=== PATIENT | female | born 1985 | race Caucasian/White ===

== ENCOUNTER 2020-02-25 00:22 | Inpatient (IN) | payer OTHER, SELFPAY ==
[2020-02-25] VITALS (19 sets, daily range): BP systolic 145–184; BP diastolic 94–129; PULSE 65–105; RESP 10–22; TEMP 36.3–36.8; O2SAT 93–100; BMI 45.0
--- NOTE | ~2020-02-25 | XR_ITS ---
EXAMINATION: XR abdomen/kub 1V INDICATION: Right ureteral stone TECHNIQUE: Supine view of the abdomen is obtained. COMPARISON: 0335 hours FINDINGS: A right internal ureteral stent has been placed in expected position. The bowel gas pattern is normal. Multiple pelvic phleboliths are noted. An IUD is seen in the pelvis. Surgical changes are noted at the site of left nephrectomy IMPRESSION: 1. Right internal ureteral stent in expected position. Reviewed, dictated and finalized at location A. VICE MARSHAL
--- NOTE | ~2020-02-25 | XR_ITS ---
EXAMINATION: XR abdomen/kub 1V INDICATION: Right flank pain TECHNIQUE: Supine views of the abdomen were obtained on 2 radiographs. COMPARISON: CT from today FINDINGS: A subtle calcification projects over the right L4 transverse process and likely corresponds to the known right ureteral stone. The bowel gas pattern is normal. Surgical clips are noted in the left renal fossa. An IUD is present in the uterus. There are phleboliths of the pelvis. Mild hip oste oarthritis is noted. IMPRESSION: 1. Subtle calcification projecting in the right proximal ureter at the expected position of the known right ureteral stone. Reviewed, dictated and finalized at location A. EL AIDE
--- NOTE | ~2020-02-25 | XR_ITS ---
EXAMINATION: XR retrograde pyelo w/stent RT INDICATION: Right ureteral stone TECHNIQUE: Eight intraoperative fluoroscopic images are submitted for review. Total fluoroscopic time is 21.2 seconds. COMPARISON: KUB from today FINDINGS: Fluoroscopic images demonstrate retrograde opacification of a mildly dilated right renal co llecting system and proximal ureter. A right internal ureteral stent is placed in expected position. An IUD is noted. IMPRESSION: 1. Right internal ureteral stent in expected position. 2. Mild right hydroureteronephrosis. Please refer to procedure note for full details. Reviewed, dictated and finalized at location A. OM WORKER IMPRESSION: 1. Right internal ureteral stent in expected position. 2. Mild right hydroureteronephrosis. Please refer to procedure note for full de tails.
--- NOTE | ~2020-02-25 | CT_ITS ---
EXAMINATION: CT abdomen pelvis wo con DATE: 02/25/2020 03:33 INDICATION: Right flank pain, history of left nephrectomy TECHNIQUE: Computed tomography (CT) of the abdomen and pelvis was performed without intravenous contr ast. The dose-length product (DLP) was 1497.72 mGy-cm. Automated exposure control and iterative recon struction technique were employed. COMPARISON: None FINDINGS: Minimal dependent atelectasis is present in the lung bases. The heart size is normal. There is a 5 mm nodule of the right lower lobe. The liver, spleen, pancreas, and right adrenal gland are n ormal. Multiple stones are present in the nondistended gallbladder. The left kidney is surgically abs ent. There is a 6 mm stone in the right proximal ureter which causes moderate right hydroureteronephr osis. No pathologically enlarged abdominal or pelvic lymph nodes are identified. There is no free int raperitoneal gas or evidence of bowel obstruction. An IUD is present in the uterus in expected positi on. There is a small fat-containing umbilical hernia. Soft tissue density in the midline lower abdome n could reflect scarring from prior surgery. IMPRESSION: 1. 6 mm stone of the proximal right ureter causing moderate right hydroureteronephrosis. 2. Cholelithiasis without evidence of cholecystitis. 3. 5 mm nodule of the right lower lobe, likely benign. Correlation with prior imaging. Reviewed, dictated and finalized at location A. D EDUCATION COORDINATOR IMPRESSION: 1. 6 mm stone of the proximal right ureter causing moderate right hydroureteron ephrosis. 2. Cholelithiasis without evidence of cholecystitis. 3. 5 mm nodule of the right lower lobe, likely benign. Correlation with prior i maging.
--- NOTE | ~2020-02-25 | US_ITS ---
EXAMINATION: US retroperitoneal duplex ltd EXAM DATE: 02/27/2020 16:37 INDICATION: Right Renal Duplex Doppler U/S r/o renovascular disease. Left nephrectomy. TECHNIQUE: Multiple grayscale and Doppler images of the kidney and renal arteries were obtained. Th ere is no prior study for comparison. FINDINGS: The aorta peak systolic velocity is 39 cm/s. The right renal artery peak systolic velocity is 109 cm/ s in the proximal segment, 154 cm/s in the mid segment, and 183 cm/s in the distal segment. Correlation made with CT scan from 2 days ago, and there was no arterial sclerosis demonstrated on at exam. IMPRESSION: No renal artery stenosis suspected. Reviewed, dictated and finalized at location A. N ELEVATOR MOTOR STARTER
[2020-02-25 01:28] LABS: Basophils Absolute Auto 0.1 K/mm3 (0.0-0.1); Basophils Percent Auto 0.4 % (0.2-1.2); Eosinophils Absolute Auto 0.1 K/mm3 (0-0.3); Eosinophils Percent Auto 0.8 % (0-4.4); Hematocrit 39.4 % (37.0-47.0); Immature Granulocyte Absolute 0.11 K/mm3 (0.00-0.031); Immature Granulocyte Percent A 0.6 % (0-0.5); Lymphocytes Absolute Auto 1.93 K/mm3 (0.9-3.2); Lymphocytes Percent Auto 11.2 % (18.3-44.2); Mean Corpuscular Hemoglobin 27.7 pg (26-34); Mean Corpuscular Volume 83.8 fl (80-100); Monocytes Absolute Auto 0.9 K/mm3 (0.1-0.6); Monocytes Percent Auto 5.5 % (2.6-8.5); Neutrophils Absolute Auto 14.1 K/mm3 (1.3-6.7); Neutrophils Percent Auto 81.5 % (45.5-73.1); Platelet Count Result 292 k/mm3 (150-375); Red Cell Distribution Width 14.8 % (11.5-14.5); White Blood Count 17.2 K/mm3 (4.5-10.0)
[2020-02-25 01:42] LABS: Alanine Aminotransferase 26 U/L (4-35); Albumin Level 4.2 g/dL (3.5-5.1); Alkaline Phosphatase 107 U/L (38-126); Anion Gap 8 mmol/L (8-16); Aspartate Amino Transferase 34 U/L (14-36); Bilirubin,Total 0.5 mg/dL (0.2-1.3); Blood Urea Nitrogen 14 mg/dL (7-17); Calcium 9.6 mg/dL (8.4-10.2); Carbon Dioxide 28 mmol/L (22-30); Chloride 103 mmol/L (98-107); Estimated CRCL calculation 62 ml/min; Estimated Glomerular Filt Rate 43; Glucose 127 mg/dL (65-105); Potassium 3.9 mmol/L (3.4-5.0); Sodium 139 mmol/L (137-145)
--- NOTE | 2020-02-25 01:53 | ED.BACK ---
HPI - Back Pain/Injury General Chief Complaint: Back Pain/Injury Stated Complaint: kidney stones Time Seen by Provider: 02/25/20 01:46 Source: patient Mode of arrival: ambulatory Limitations: no limitations History of Present Illness HPI Narrative: This patient is a 34 year old female with history of kidney stone and a left nephrectomy who presents for evaluation of right flank pain. She states she developed right flank pain 2 weeks ago briefly and then it spontaneously resolved. Her pain developed again at 8 pm tonight. This pain has been severe and she has associated nausea and vomiting. Her pain radiates to her right lower abdomen. She also reports she is unable to urinate since she had this pain tonight. She denies fever or chills. She took tylenol 1000 mg at 9 pm, and her pain level is 5/10. Related Data Home Medications Medication Instructions Recorded Confirmed No Home Medications 02/25/20 02/25/20 Allergies Allergy/AdvReac Type Severity Reaction Status Date / Time No Known Allergies Allergy Mild Verified 02/25/20 12:10 Review of Systems Review of Systems: All systems reviewed & are unremarkable except as noted in HPI and below Constitutional: Constitutional: Denies chills and Denies fever(s) Respiratory: Respiratory: Denies cough and Denies dyspnea Gastrointestinal: Gastrointestinal: Reports abdominal pain, Reports nausea and Reports vomiting Genitourinary: Genitourinary: Denies nocturia, Denies dysuria, Reports flank pain and Denies vaginal discharge Musculoskeletal: Musculoskeletal: Reports back pain [facility] Past Medical History Medical History Kidney stone Surgical History Surgical History H/O left nephrectomy Family History Family History Father Nephrolithiasis Social History Social History Smoking status: Never smoker Alcohol intake: current Drinks per week: 1 Substance use: never Substance use type: does not use Living arrangements: with family Spiritual care concerns: No Exam Const: General: alert and ill appearing; No no acute distress Orientation/consciousness: patient oriented x3 HENMT: Head: atraumatic Face and sinus: face symmetric Throat: posterior oropharynx normal Eyes: EOM: EOMs intact bilaterally Chest: Chest palpation & inspection: normal inspection of the chest Resp: Effort & Inspection: normal respiratory effort and no retractions Auscultation: clear to auscultation bilaterally Cardio: Rate: regular rate Rhythm: regular rhythm Heart sounds: Murmur heart sound present GI: GI Palp: Yes Soft to palpation, Yes Tenderness to palpation present (GI) (RUQ), No Guarding due to palpation present (GI) and No Rigid due to palpation Auscultation: normal bowel sounds Skin: General skin exam: normal color Rashes: no rashes Psych: Mental Status: mental status grossly normal Affect: normal affect Course Consultations Consultation #1: I discussed case with Dr. Taylor of urology. He states patient will need to be admitted and have stent placement. He states he is not cashier and salesperson and to call DR. Romero Date: 02/25/20 Time: 04:12 Consultation #2: i have discussed case with DR. Romero and he agrees to admit patient to their service Date: 02/25/20 Time: 06:30 Vital Signs Vital signs: Vital Signs Pulse Rate 70 02/25/20 00:37 Respiratory Rate 20 02/25/20 00:37 Blood Pressure 176/116 H 02/25/20 00:37 Pulse Oximetry 98 02/25/20 00:37 Temperature 98.0 F 02/25/20 17:54 Pulse Rate 87 02/25/20 17:54 Respiratory Rate 18 02/25/20 17:54 Blood Pressure 178/99 H 02/25/20 17:54 Pulse Oximetry 100 02/25/20 17:54 MDM - Back Pain/Injury Lab Data Attestation: I reviewed the patient's lab re
[2020-02-25] MEDS: ONDANSETRON INJ 4 MG/2 ML VIAL IV PUSH ×2 (02:48→07:43)
[2020-02-25] MEDS: HYDROmorphone HCL INJ (*CRX) 1 MG/ML SYR IV PUSH (02:48)
[2020-02-25] MEDS: LACTATED RINGERS 1,000 ML 999 ML IV CONT (02:51)
[2020-02-25 03:34] LABS: Add Urine Microscopic? YES; Appearance Urine Cloudy (Clear); Bacteria Urine Trace /hpf; Bilirubin Urine Negative (Negative); Blood Urine 3+ (Negative); Color Urine Yellow (Yellow); Glucose Urine UA Negative (Negative); Ketones Urine Negative (Negative); Leukocyte Esterase Ur Negative LEU/UL (Negative); Mucus Urine Rare /lpf; Nitrate Urine Negative (Negative); Protein Urine 1+ mg/dL (Negative); RBC Urine >75 /hpf (0-2); Specific Grav Ur 1.013 (1.001-1.035); Squamous Epithelial Cell Urine Many /hpf (Few); Urobilinogen Urine Negative mg/dL (<2.0); WBC Urine 0-3 /hpf
[2020-02-25] MEDS: SODIUM CHLORIDE 0.9% IV 1,000 ML 125 ML IV CONT ×3 (07:24→21:11)
--- NOTE | 2020-02-25 08:25 | PM.IMHP ---
H&P: HPI History of Present Illness Date/Time: 02/25/20 08:25 Chief complaint: Obstructive uropathy/right proximal ureteral stone Narrative: Clair Cardenas is a 34 year old female with a solitary right kidney who presented to the [facility] yesterday evening with several hours of excruciating right flank pain and nausea/vomiting. She reports that several years ago she underwent a simple nephrectomy with Dr. 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 She denies fevers, chills. Her pain started around 8pm and she started vomiting around 10 pm. The pain is described as sharp and severe although relieved with IV narcotics. Review of Systems Constitutional: Constitutional: Denies fatigue, Denies fever(s), Denies night sweats and Reports poor appetite Eyes: Eyes: Reports no additional eye complaints ENT: Reports system reviewed and no additional complaints, except as documented Cardiovascular: Cardiovascular: Reports no additional cardiovascular complaints Respiratory: Respiratory: Reports no additional respiratory complaints Gastrointestinal: Gastrointestinal: Reports abdominal pain, Denies hematochezia and Denies constipation Genitourinary: Genitourinary: Denies hematuria, Denies post void dribbling and Denies nocturia Musculoskeletal: Musculoskeletal: Reports no additional musculoskeletal complaints Integumentary/Breasts: Skin/Breast: Reports system reviewed and no additional complaints, except as docu Neurologic: Reports system reviewed and no additional complaints, except as documented Psychiatric: Psychiatric: Reports no additional psychiatric complaints Endocrine: Endocrine: Reports no additional endocrine complaints Hematologic/Lymphatic: Hematologic/Lymphatic: Reports no additional hematologic/lymphatic complaints Allergic/Immunologic: Allergic/Immunologic: Reports no additional allergic/immunologic complaints [facility] Past Medical History Medical History Kidney stone Surgical History Surgical History H/O left nephrectomy Family History Family History (Updated 02/25/20 @ 08:29 by Leland Romero MD) Father Nephrolithiasis Social History Social History Smoking status: Never smoker Meds Home Medications and Allergies Home Medications Medication Instructions Recorded Confirmed Type azithromycin See Rx Instructions .ROUTE 04/12/19 Rx .COMPLEX #6 tablet Allergies Allergy/AdvReac Type Severity Reaction Status Date / Time No Known Allergies Allergy Mild Verified 02/25/20 08:06 Vital Signs Vital Signs - 24 hr 02/25/20 00:37 02/25/20 00:40 02/25/20 07:52 Temperature 98.3 F Pulse Rate 70 83 83 Respiratory Rate 20 18 18 Blood Pressure 176/116 H 180/125 H 163/116 H Pulse Oximetry 98 99 95 Exam Const: General: cooperative, healthy appearing, well developed, alert, awake and in distress mild Nutritional Appearance: obese Orientation/consciousness: oriented to person, oriented to place and oriented to time HENMT: Head: normal to inspection Ears: hearing grossly normal bilaterally General nose exam: Normal external nose present Eyes: General: appearance normal, both eyes and all related structures Resp: Effort & Inspection: normal respiratory effort, able to speak in complete sentences, normal respiratory pattern, no audible wheezes, no cough and respiratory effort not decreased Cardio: Jugular venous distension: no JVD Rate: regular rate Rhythm: regular rhythm GI: Inspection: normal to inspection and [place] present Skin: General skin exam: normal color and no rashes or lesions noted Neuro: General: oriented to person, oriented to place, oriented to time, Normal light touch and pain sensation and no focal motor deficits H&P: Results Labs Labs: Short CBC
--- NOTE | 2020-02-25 09:13 | WPDANESEPP ---
Anes - Eval Pre Procedure Procedure: Operation Date: 02/25/20 09:15 Proposed Procedures p Cysto, RPG, Stone Ext, Stent Placement(Right) - Leland Romero MD Date/Time: 02/25/20 09:13 Surgeon: Jessie Romero MD Pre Op Diagnosis: Obstructive uropathy/right proximal ureteral stone Patient Data Age: 34 Gender: F Height: 1.63 m Weight: 113.4 kg Last Vital Signs Temp 36.8 C 02/25/20 00:40 Pulse 83 02/25/20 07:52 Resp 18 02/25/20 07:52 BP 163/116 H 02/25/20 07:52 Pulse Ox 95 02/25/20 07:52 Allergies Allergy/AdvReac Type Severity Reaction Status Date / Time No Known Allergies Allergy Mild Verified 02/25/20 08:06 Home Medications Medication Instructions Recorded Confirmed Type azithromycin See Rx Instructions .ROUTE 04/12/19 Rx .COMPLEX #6 tablet Laboratory Tests 02/25/20 02/25/20 02/25/20 01:21 01:21 03:23 WBC 17.2 K/mm3 H K/mm3 (4.5-10.0) RBC 4.70 M/mm3 M/mm3 (4.2-5.4) Hgb 13.0 g/dL g/dL (12.0-15.0) Hct 39.4 % % (37.0-47.0) MCV 83.8 fl fl (80-100) MCH 27.7 pg pg (26-34) MCHC 33.0 g/dl g/dl (32-36) RDW 14.8 % H % (11.5-14.5) Plt Count 292 k/mm3 k/mm3 (150-375) MPV 11.0 fl H fl (7.4-10.4) Immature Gran % (Auto) 0.6 % H % (0-0.5) Neut % (Auto) 81.5 % H % (45.5-73.1) Lymph % (Auto) 11.2 % L % (18.3-44.2) [place] % (Auto) 5.5 % % (2.6-8.5) Eos % (Auto) 0.8 % % (0-4.4) Baso % (Auto) 0.4 % % (0.2-1.2) Lymph # (Auto) 1.93 K/mm3 K/mm3 (0.9-3.2) [place] # (Auto) 0.9 K/mm3 H K/mm3 (0.1-0.6) Eos # (Auto) 0.1 K/mm3 K/mm3 (0-0.3) Baso # (Auto) 0.1 K/mm3 K/mm3 (0.0-0.1) Abs Immat Gran (auto) 0.11 K/mm3 H K/mm3 (0.00-0.031) Absolute Neuts (auto) 14.1 K/mm3 H K/mm3 (1.3-6.7) Absolute Nucleated RBC 0.0 K/mm3 K/mm3 (0.0-0.012) Nucleated RBC % 0.0 % % (0.0-0.2) Sodium 139 mmol/L mmol/L (137-145) Potassium 3.9 mmol/L mmol/L (3.4-5.0) Chloride 103 mmol/L mmol/L (98-107) Carbon Dioxide 28 mmol/L mmol/L (22-30) Anion Gap 8 mmol/L mmol/L (8-16) BUN 14 mg/dL mg/dL (7-17) Creatinine 1.40 mg/dL H mg/dL (0.7-1.0) Estim Creat Clear Calc 62 ml/min ml/min Estimated GFR 43 L (59 - ) Glucose 127 mg/dL H mg/dL (65-105) Calcium 9.6 mg/dL mg/dL (8.4-10.2) Total Bilirubin 0.5 mg/dL mg/dL (0.2-1.3) AST 34 U/L U/L (14-36) ALT 26 U/L U/L (4-35) Alkaline Phosphatase 107 U/L U/L (38-126) Total Protein 8.0 g/dL g/dL (6.3-8.2) Albumin 4.2 g/dL g/dL (3.5-5.1) Urine Color Yellow (Yellow) Urine Appearance Cloudy H (Clear) Urine pH 6.0 (5.0-9.0) Ur Specific [place] 1.013 (1.001-1.035) Urine Protein 1+ mg/dL H mg/dL (Negative) Urine Glucose (UA) Negative mg/dL mg/dL (Negative) Urine Ketones Negative mg/dL mg/dL (Negative) Ur Blood (Man) 3+ H (Negative) Urine Nitrate Negative (Negative) Urine Bilirubin Negative (Negative) Urine Urobilinogen Negative mg/dL mg/dL (<2.0) Leukocyte Esterase Rfl Negative KIT/UL KIT/UL (Negative) Urine RBC >75 /hpf H /hpf (0-2) Urine WBC 0-3 /hpf /hpf Ur Squamous Epith Cells Many /hpf H /hpf (Few) Urine Bacteria Trace /hpf /hpf Urine Mucus Rare /lpf /lpf SARS-CoV-2 RNA (RT-PCR) 02/25/20 06:58 WBC RBC Hgb Hct MCV MCH MCHC RDW Plt Count MPV Immature Gran % (Auto) Neut % (Auto) Lymph % (Auto) [place] % (Auto) Eos % (
--- NOTE | 2020-02-25 09:16 | WPDANESEPP ---
Anes - Eval Pre Procedure Procedure: Operation Date: 02/25/20 09:15 Proposed Procedures p Cysto, RPG, Stone Ext, Stent Placement(Right) - Leland Romero MD Date/Time: 02/25/20 09:16 Pre Op Diagnosis: Obstructive uropathy/right proximal ureteral stone Patient Data Age: 34 Gender: F Height: 1.63 m Weight: 113.4 kg Last Vital Signs Temp 36.8 C 02/25/20 00:40 Pulse 83 02/25/20 07:52 Resp 18 02/25/20 07:52 BP 163/116 H 02/25/20 07:52 Pulse Ox 95 02/25/20 07:52 Allergies Allergy/AdvReac Type Severity Reaction Status Date / Time No Known Allergies Allergy Mild Verified 02/25/20 12:10 Home Medications Medication Instructions Recorded Confirmed Type No Home Medications 02/25/20 02/25/20 History cephalexin [Keflex] 500 mg PO Q8H 3 Days #9 cap 02/26/20 Rx hydrocodone-acetaminophen 1 tab PO Q8H PRN #12 tablet 02/26/20 Rx oxybutynin chloride 5 mg PO TID PRN #60 tablet MDD 3 02/26/20 Rx tablets Laboratory Tests 02/25/20 02/25/20 02/25/20 01:21 01:21 03:23 WBC 17.2 K/mm3 H K/mm3 (4.5-10.0) RBC 4.70 M/mm3 M/mm3 (4.2-5.4) Hgb 13.0 g/dL g/dL (12.0-15.0) Hct 39.4 % % (37.0-47.0) MCV 83.8 fl fl (80-100) MCH 27.7 pg pg (26-34) MCHC 33.0 g/dl g/dl (32-36) RDW 14.8 % H % (11.5-14.5) Plt Count 292 k/mm3 k/mm3 (150-375) MPV 11.0 fl H fl (7.4-10.4) Immature Gran % (Auto) 0.6 % H % (0-0.5) Neut % (Auto) 81.5 % H % (45.5-73.1) Lymph % (Auto) 11.2 % L % (18.3-44.2) [place] % (Auto) 5.5 % % (2.6-8.5) Eos % (Auto) 0.8 % % (0-4.4) Baso % (Auto) 0.4 % % (0.2-1.2) Lymph # (Auto) 1.93 K/mm3 K/mm3 (0.9-3.2) [place] # (Auto) 0.9 K/mm3 H K/mm3 (0.1-0.6) Eos # (Auto) 0.1 K/mm3 K/mm3 (0-0.3) Baso # (Auto) 0.1 K/mm3 K/mm3 (0.0-0.1) Abs Immat Gran (auto) 0.11 K/mm3 H K/mm3 (0.00-0.031) Absolute Neuts (auto) 14.1 K/mm3 H K/mm3 (1.3-6.7) Absolute Nucleated RBC 0.0 K/mm3 K/mm3 (0.0-0.012) Nucleated RBC % 0.0 % % (0.0-0.2) Sodium 139 mmol/L mmol/L (137-145) Potassium 3.9 mmol/L mmol/L (3.4-5.0) Chloride 103 mmol/L mmol/L (98-107) Carbon Dioxide 28 mmol/L mmol/L (22-30) Anion Gap 8 mmol/L mmol/L (8-16) BUN 14 mg/dL mg/dL (7-17) Creatinine 1.40 mg/dL H mg/dL (0.7-1.0) Estim Creat Clear Calc 62 ml/min ml/min Estimated GFR 43 L (59 - ) Glucose 127 mg/dL H mg/dL (65-105) Calcium 9.6 mg/dL mg/dL (8.4-10.2) Total Bilirubin 0.5 mg/dL mg/dL (0.2-1.3) AST 34 U/L U/L (14-36) ALT 26 U/L U/L (4-35) Alkaline Phosphatase 107 U/L U/L (38-126) Total Protein 8.0 g/dL g/dL (6.3-8.2) Albumin 4.2 g/dL g/dL (3.5-5.1) Urine Color Yellow (Yellow) Urine Appearance Cloudy H (Clear) Urine pH 6.0 (5.0-9.0) Ur Specific [place] 1.013 (1.001-1.035) Urine Protein 1+ mg/dL H mg/dL (Negative) Urine Glucose (UA) Negative mg/dL mg/dL (Negative) Urine Ketones Negative mg/dL mg/dL (Negative) Ur Blood (Man) 3+ H (Negative) Urine Nitrate Negative (Negative) Urine Bilirubin Negative (Negative) Urine Urobilinogen Negative mg/dL mg/dL (<2.0) Leukocyte Esterase Rfl Negative KIT/UL KIT/UL (Negative) Urine RBC >75 /hpf H /hpf (0-2) Urine WBC 0-3 /hpf /hpf Ur Squamous Epith Cells Many /hpf H /hpf (Few) Urine Bacteria Trace /hpf /hpf Urine Mucus Rare /lpf /lpf SARS-CoV-2 RNA (RT-PCR) 02/25/20 06:58 WBC RBC Hgb Hct MCV MCH
[2020-02-25] MEDS: LACTATED RINGERS 1,000 ML 30 ML IV CONT (09:45)
--- NOTE | 2020-02-25 09:47 | WPDANESEPPF ---
Anes - Initial Pre Proc Eval Procedure: Operation Date: 02/25/20 09:15 Proposed Procedures p Cysto, RPG, Stone Ext, Stent Placement(Right) - Leland Romero MD Date/Time: 02/25/20 09:47 Surgeon: Leland Romero MD Pre Op Diagnosis: Obstructive uropathy/right proximal ureteral stone Patient Data Age: 34 Gender: F Height: 5 ft 4 in Weight: 113.4 kg Last Vital Signs Temp 36.8 C 02/25/20 00:40 Pulse 81 02/25/20 09:16 Resp 22 H 02/25/20 09:16 BP 172/129 H 02/25/20 09:16 Pulse Ox 100 02/25/20 09:16 Allergies Allergy/AdvReac Type Severity Reaction Status Date / Time No Known Allergies Allergy Mild Verified 02/25/20 08:06 Home Medications Medication Instructions Recorded Confirmed Type azithromycin See Rx Instructions .ROUTE 04/12/19 Rx .COMPLEX #6 tablet Laboratory Tests 02/25/20 02/25/20 02/25/20 01:21 01:21 03:23 WBC 17.2 K/mm3 H K/mm3 (4.5-10.0) RBC 4.70 M/mm3 M/mm3 (4.2-5.4) Hgb 13.0 g/dL g/dL (12.0-15.0) Hct 39.4 % % (37.0-47.0) MCV 83.8 fl fl (80-100) MCH 27.7 pg pg (26-34) MCHC 33.0 g/dl g/dl (32-36) RDW 14.8 % H % (11.5-14.5) Plt Count 292 k/mm3 k/mm3 (150-375) MPV 11.0 fl H fl (7.4-10.4) Immature Gran % (Auto) 0.6 % H % (0-0.5) Neut % (Auto) 81.5 % H % (45.5-73.1) Lymph % (Auto) 11.2 % L % (18.3-44.2) [place] % (Auto) 5.5 % % (2.6-8.5) Eos % (Auto) 0.8 % % (0-4.4) Baso % (Auto) 0.4 % % (0.2-1.2) Lymph # (Auto) 1.93 K/mm3 K/mm3 (0.9-3.2) [place] # (Auto) 0.9 K/mm3 H K/mm3 (0.1-0.6) Eos # (Auto) 0.1 K/mm3 K/mm3 (0-0.3) Baso # (Auto) 0.1 K/mm3 K/mm3 (0.0-0.1) Abs Immat Gran (auto) 0.11 K/mm3 H K/mm3 (0.00-0.031) Absolute Neuts (auto) 14.1 K/mm3 H K/mm3 (1.3-6.7) Absolute Nucleated RBC 0.0 K/mm3 K/mm3 (0.0-0.012) Nucleated RBC % 0.0 % % (0.0-0.2) Sodium 139 mmol/L mmol/L (137-145) Potassium 3.9 mmol/L mmol/L (3.4-5.0) Chloride 103 mmol/L mmol/L (98-107) Carbon Dioxide 28 mmol/L mmol/L (22-30) Anion Gap 8 mmol/L mmol/L (8-16) BUN 14 mg/dL mg/dL (7-17) Creatinine 1.40 mg/dL H mg/dL (0.7-1.0) Estim Creat Clear Calc 62 ml/min ml/min Estimated GFR 43 L (59 - ) Glucose 127 mg/dL H mg/dL (65-105) Calcium 9.6 mg/dL mg/dL (8.4-10.2) Total Bilirubin 0.5 mg/dL mg/dL (0.2-1.3) AST 34 U/L U/L (14-36) ALT 26 U/L U/L (4-35) Alkaline Phosphatase 107 U/L U/L (38-126) Total Protein 8.0 g/dL g/dL (6.3-8.2) Albumin 4.2 g/dL g/dL (3.5-5.1) Urine Color Yellow (Yellow) Urine Appearance Cloudy H (Clear) Urine pH 6.0 (5.0-9.0) Ur Specific [place] 1.013 (1.001-1.035) Urine Protein 1+ mg/dL H mg/dL (Negative) Urine Glucose (UA) Negative mg/dL mg/dL (Negative) Urine Ketones Negative mg/dL mg/dL (Negative) Ur Blood (Man) 3+ H (Negative) Urine Nitrate Negative (Negative) Urine Bilirubin Negative (Negative) Urine Urobilinogen Negative mg/dL mg/dL (<2.0) Leukocyte Esterase Rfl Negative KIT/UL KIT/UL (Negative) Urine RBC >75 /hpf H /hpf (0-2) Urine WBC 0-3 /hpf /hpf Ur Squamous Epith Cells Many /hpf H /hpf (Few) Urine Bacteria Trace /hpf /hpf Urine Mucus Rare /lpf /lpf SARS-CoV-2 RNA (RT-PCR) 02/25/20 06:58 WBC RBC Hgb Hct MCV MCH MCHC RDW Plt Count MPV Immature Gran % (Auto) Neut % (Auto) Lymph % (Auto) [place] % (Auto
[2020-02-25] MEDS: LIDOCAINE HCL 2% GEL UROJET 10 ML PKG MUCOUS MEM (10:08)
--- NOTE | 2020-02-25 10:31 | SUR.PHASEI ---
1031- Patient's BP 162/102, HR 90. Ethan Chopra CRNA gave 5MG IVP labetalol.
--- NOTE | 2020-02-25 10:31 | PM.PROC ---
Procedure Note - Detailed Date of procedure: 02/25/20 Pre-op diagnosis: Obstructive uropathy/right proximal ureteral stone 1. Solitary Right Kidney 2. Right ureteral stone Procedure performed: 1. Solitary Right Kidney 2. Right ureteral stone Description of procedure: After a discussion of thebenefits, risks and alternatives the patient offered informed written consent. Specifically, we discussed the critical need to unobstruct her solitary kidney. We discussed risks of infection, bleeding, injury to anatomic structures, inability to place stent, postoperative pain, stent disccomfort, retained stent, she agreed to proceed. She was taken tothe operating room and placed on the table in the supine position. Anesthesia was induced without issue, she was transferred to the dorsal lithotomy position. A call to order was made to confirm patient identity and proper procedure. The procedure began with the atraumatic insertion of a 19F cystoscope. Panycystoscopy revealed no bladder masses, lesions or stones. The right ureteral orifice was approached with the cystoscope and a 5F passed to the opening, a straight glide was advanced to the renal pelvis, and the catheter advanced several centimeters into the distal ureter. A retrograde pyelogram was performed with moderate hydronephrosis noted. The cahteter was removed and a 6F variable length was advanced over the wire. An excellent curl was noted in the bladder and was obscured by the contrast from the pyelogram in the kidney, however the stent could clearlly be se seen crossing the UPJ. Anesthesia: GLMA Surgeon: Leland Romero MD Estimated blood loss (mL): 2 Drains: Yes (6F Variable length stent) Pathology: none sent Complications: No immediate complications Condition: stable Disposition: PACU
--- NOTE | 2020-02-25 10:35 | SUR.PHASEI ---
1035- Patient's BP 162/95, HR 80's. Ethan Aragon CRNA gave 10MG labetalol IVP.
--- NOTE | 2020-02-25 10:51 | SUR.PHASEI ---
1051- Call to Ethan Chopra CRNA patient's BP elevated 170/114 with HR in 80's to 90's. Obtained orders for 10MG IVP labetalol once. Will continue to monitor.
[2020-02-25] MEDS: LABETALOL HCL INJ 100 MG/20 ML VIAL 10 MG IV PUSH ×2 (10:56→11:20)
--- NOTE | 2020-02-25 11:20 | SUR.PHASEI ---
1120- Call to Ethan Chopra CRNA patient's BP elevated 161/115 with HR in 70's-80's. Obtained orders for 10MG IVP labetalol once. Will continue to monitor.
--- NOTE | 2020-02-25 11:22 | SUR.PHASEI ---
1122- Call to Dr. Romero to clarify hydralazine orders upon transfer to floor. Patient's BP has been elevated with diastolic above 100's. Per Dr. Romero adjust order for hydralazine PRN 10MG IVP Q8HR for SBP >170 or DBP >100.
--- NOTE | 2020-02-25 12:00 | ADMGEN ---
This patient, Clair Cardenas, was admitted to Medical Room 255-. Patient/family oriented to hospital policies and general routines including ID bracelet, bed and alarms, visiting hours, pain management, procedures, bathroom and other care routines, personal items, smoking policy, room service/diet, and visiting hours. Information on how to activate the Rapid Response Team has been discussed. Patient/Family are encouraged to report perceived risks to care and to ask questions if they do not understand what they are told or what they should do.
[2020-02-25 12:22] LABS: Hematocrit 38.9 % (37.0-47.0); Hemoglobin 12.4 g/dL (12.0-15.0); Mean Corpuscular HGB Conc 31.9 g/dl (32-36); Mean Corpuscular Hemoglobin 27.4 pg (26-34); Mean Corpuscular Volume 85.9 fl (80-100); Mean Platelet Volume 11.1 fl (7.4-10.4); Platelet Count Result 298 k/mm3 (150-375); Red Blood Count 4.53 M/mm3 (4.2-5.4); Red Cell Distribution Width 15.1 % (11.5-14.5); White Blood Count 16.8 K/mm3 (4.5-10.0)
[2020-02-25 12:35] LABS: Anion Gap 8 mmol/L (8-16); Blood Urea Nitrogen 11 mg/dL (7-17); Calcium 9.3 mg/dL (8.4-10.2); Carbon Dioxide 30 mmol/L (22-30); Chloride 106 mmol/L (98-107); Estimated CRCL calculation 80 ml/min; Estimated Glomerular Filt Rate 56; Glucose 124 mg/dL (65-105); Potassium 4.4 mmol/L (3.4-5.0); Sodium 144 mmol/L (137-145)
[2020-02-25] MEDS: hydrALAZINE HCL 20 MG/ML VIAL 10 MG IV PUSH (12:57)
[2020-02-25 17:07] LABS: Anion Gap 8 mmol/L (8-16); Blood Urea Nitrogen 10 mg/dL (7-17); Calcium 9.3 mg/dL (8.4-10.2); Carbon Dioxide 27 mmol/L (22-30); Chloride 109 mmol/L (98-107); Estimated CRCL calculation 96 ml/min; Estimated Glomerular Filt Rate > 60; Glucose 120 mg/dL (65-105); Potassium 4.1 mmol/L (3.4-5.0); Sodium 144 mmol/L (137-145)
[2020-02-25] MEDS: HYDROcodone/acetaminophen (*CRX) 5-325 MG TABLET 1 TAB PO (21:16)
[2020-02-25 21:18] LABS: SARS-CoV-2 RNA PCR Negative
[2020-02-26 02:04] VITALS: BP 170/96; PULSE 93; RESP 18; TEMP 36.3; O2SAT 94
[2020-02-26] MEDS: SODIUM CHLORIDE 0.9% IV 1,000 ML 125 ML IV CONT (05:20)
[2020-02-26] MEDS: HYDROcodone/acetaminophen (*CRX) 5-325 MG TABLET 1 TAB PO (05:21)
[2020-02-26 05:59] LABS: Hematocrit 35.6 % (37.0-47.0); Hemoglobin 11.5 g/dL (12.0-15.0); Mean Corpuscular HGB Conc 32.3 g/dl (32-36); Mean Corpuscular Hemoglobin 27.9 pg (26-34); Mean Corpuscular Volume 86.4 fl (80-100); Mean Platelet Volume 11.3 fl (7.4-10.4); Platelet Count Result 295 k/mm3 (150-375); Red Blood Count 4.12 M/mm3 (4.2-5.4); Red Cell Distribution Width 15.4 % (11.5-14.5); White Blood Count 14.4 K/mm3 (4.5-10.0)
[2020-02-26 06:14] LABS: Anion Gap 8 mmol/L (8-16); Blood Urea Nitrogen 7 mg/dL (7-17); Calcium 8.8 mg/dL (8.4-10.2); Carbon Dioxide 27 mmol/L (22-30); Chloride 106 mmol/L (98-107); Estimated CRCL calculation 107 ml/min; Estimated Glomerular Filt Rate > 60; Glucose 103 mg/dL (65-105); Potassium 3.7 mmol/L (3.4-5.0); Sodium 141 mmol/L (137-145)
[2020-02-26] MEDS: ONDANSETRON INJ 4 MG/2 ML VIAL IV PUSH (08:20)
[2020-02-26] MEDS: polyethylene glycoL 3350 17 GM POWD.PACK PO (08:21)
--- NOTE | 2020-02-26 09:18 | WPDUROPN2 ---
Progress Note: A&P Assessment and Plan (1) Hypertension: Code(s): I10 - Essential (primary) hypertension Status: Acute Assessment and Plan: Patient on hydralazine PRN for severe hypertension. Will request internal medicine consultation by Hospital Medicine for initiation of antihypertensives. Recommend discussion with her PCP after discharge. (2) Right ureteral calculus: Code(s): N20.1 - Calculus of ureter Status: Acute Assessment and Plan: Ureteral stent in appropriate position on KUB with excellent UOP and relief of renal colic. We will plan for URS/LL in about 1-2 weeks. Patient to discharge with flomax, oxybutynin, antibiotics and pain medication. Will DC IVF. She is having some nausea, if this improves and she feels able, she may discharge this afternoon vs. tomorrow. Time Spent With Patient Time with patient: 15 - 25 minutes Subjective Subjective Date/Time Seen: 02/26/20 09:18 Post Op day: 1 Interval history: NAEO, patient reports significant improvement in her flank pain. Some stent discomfort as well as frequency and urgency. +Nausea, no vomiting, significant hypertension. Exam Const: General: cooperative, healthy appearing, comfortable and no acute distress HENMT: Head: normal to inspection General nose exam: Normal external nose present Face and sinus: normal facial exam Eyes: General: appearance normal, both eyes and all related structures Resp: Effort & Inspection: normal respiratory effort, able to speak in complete sentences, normal respiratory pattern, no audible wheezes and no cough Cardio: Jugular venous distension: JVD present Rate: regular rate Rhythm: regular rhythm GI: Inspection: normal to inspection and obesity GI Palp: No abdominal tenderness Skin: General skin exam: normal color Neuro: General: oriented to person, oriented to place and oriented to time Objective Data Vital Signs Vital Signs: Vital Signs - 24 hr 02/25/20 10:24 02/25/20 10:30 02/25/20 10:35 Temperature 97.8 F Pulse Rate 105 H 93 83 Respiratory Rate 10 L 16 18 Blood Pressure 145/99 H 162/102 H 162/95 H Pulse Oximetry 98 100 100 02/25/20 10:45 02/25/20 10:50 02/25/20 10:56 Temperature Pulse Rate 85 82 82 Respiratory Rate 18 16 Blood Pressure 153/98 H 170/114 H Pulse Oximetry 95 95 02/25/20 11:05 11/14/20 11:20 02/25/20 11:35 Temperature Pulse Rate 80 73 75 Respiratory Rate 16 18 18 Blood Pressure 158/96 H 161/115 H 161/106 H Pulse Oximetry 95 93 96 02/25/20 12:00 02/25/20 12:15 02/25/20 12:45 Temperature 97.9 F 97.9 F 98 F Pulse Rate 71 78 65 Respiratory Rate 18 18 18 Blood Pressure 160/104 H 181/114 H 184/113 H Pulse Oximetry 100 97 100 02/25/20 14:00 02/25/20 17:54 02/25/20 22:00 Temperature 97.3 F L 98.0 F 97.9 F Pulse Rate 96 87 100 Respiratory Rate 18 18 16 Blood Pressure 179/113 H 178/99 H 164/94 H Pulse Oximetry 100 100 96 02/26/20 02:04 Temperature 97.4 F L Pulse Rate 93 Respiratory Rate 18 Blood Pressure 170/96 H Pulse Oximetry 94 Intake/Output Intake/Output: Intake & Output 02/23/20 02/24/20 02/25/20 02/26/20 23:59 23:59 23:59 23:59 Intake Total 4070 2190 Output Total 1380 1200 Balance 2690 990 Meds/Results Medications: Active Medications Generic Name Dose Route Start Last Admin Trade Name Freq PRN Reason Stop Dose Admin Hydrocodone Bitart/Acetaminophen 1 tab 02/25/20 11:46 02/26/20 05:21 Hydrocodone/Acetaminophen (*Crx) 5-325 Mg Tablet PO 1 tab Q6H PRN Administration Pain Rated 1-6 Hydralazine HCl 10 mg 02/25/20 11:46 02/25/20 12:57 Hydralazine Hcl 20 Mg/Ml Vial IV PUSH 10 mg Q8H PRN Administration Blood Pressure - High Sodium Chloride 1,000 mls @ 125 mls/hr 02/25/20 06:30 02/26/20 05:20 Normal Saline Iv IV CONT 125 mls/hr .Q8H JEFF Administration Ceftriaxone Sodium 2 gm in 100 mls @ 200 mls/hr 02/26/20 09:00 02/26/20 08:19 Rocephin 2 Gm/D5w 100
[2020-02-26] MEDS: TAMSULOSIN HCL 0.4 MG CAPSULE PO (10:31)
--- NOTE | 2020-02-26 12:59 | WPDANESPN ---
Anes - Prog Note Post-Op Date/Time: 02/26/20 12:59 Cardiovascular status: normal Respiratory status: normal Airway patency: baseline Mental status: baseline Post-Op hydration status: normal Vital Signs: Last Vital Signs Temp 36.3 C L 02/26/20 02:04 Pulse 93 02/26/20 02:04 Resp 18 02/26/20 02:04 BP 170/96 H 02/26/20 02:04 Pulse Ox 94 02/26/20 02:04 Pain Score (VAS): 0/10. Patient resting in bed at time of assessment, appears comfortable. All questions and concerns answered at time of assessment to patient satisfaction. I/O: Intake & Output 02/25/20 02/26/20 02/26/20 23:59 07:59 15:59 Intake Total 1720 1950 890 Output Total 1150 1200 Balance 570 750 890 Laboratory Tests 02/26/20 05:20 02/26/20 05:20 02/25/20 02/25/20 02/26/20 06:58 16:48 05:20 WBC 14.4 H RBC 4.12 L Hgb 11.5 L Hct 35.6 L MCV 86.4 MCH 27.9 MCHC 32.3 RDW 15.4 H Plt Count 295 MPV 11.3 H Sodium 144 Potassium 4.1 Chloride 109 H Carbon Dioxide 27 Anion Gap 8 BUN 10 Creatinine 0.90 Estim Creat Clear Calc 96 Estimated GFR > 60 Glucose 120 H Calcium 9.3 SARS-CoV-2 RNA (RT-PCR) Negative 02/26/20 05:20 WBC RBC Hgb Hct MCV MCH MCHC RDW Plt Count MPV Sodium 141 Potassium 3.7 Chloride 106 Carbon Dioxide 27 Anion Gap 8 BUN 7 Creatinine 0.80 Estim Creat Clear Calc 107 Estimated GFR > 60 Glucose 103 Calcium 8.8 SARS-CoV-2 RNA (RT-PCR) Post-procedural complaints: none Patient Feedback: Patient satisfied with anesthetic care.
[2020-02-26 13:00] VITALS: BP 164/102; PULSE 79; RESP 18; TEMP 36.9; O2SAT 100
[2020-02-26] MEDS: hydrALAZINE HCL 20 MG/ML VIAL 10 MG IV PUSH (13:24)
[2020-02-26 14:00] VITALS: BP 148/83; PULSE 111; RESP 18; O2SAT 100
[2020-02-26 22:00] VITALS: BP 148/86; PULSE 92; RESP 21; TEMP 36.3; O2SAT 100
--- NOTE | 2020-02-27 02:55 | PM.IMCN ---
Assessment and Plan Assessment and plan (1) Right ureteral calculus: Code(s): N20.1 - Calculus of ureter Status: Acute Assessment and Plan: status post stent placement. Continue Urology recommendations. (2) Hypertension: Qualifiers: Hypertension type: unspecified Qualified Code(s): I10 - Essential (primary) hypertension Code(s): I10 - Essential (primary) hypertension Status: Acute Assessment and Plan: Continue to monitor blood pressure. P.r.n. IV hydralazine with parameters as ordered. She is not on any oral contraceptive pills at this time that may induce hypertension. Will need to rule out renovascular hypertension as the patient has exhibited significantly elevated blood pressure in the setting of a solitary kidney. We will check a duplex Doppler ultrasound of the right kidney, check electrolytes, TSH reflex T4, lipid panel, urinalysis. The patient will benefit from being discharged home with a thiazide related diuretic such as chlorthalidone as this does have the secondary use of preventing nephrolithiasis as well. Consider discharging the patient home on 12.5 mg of chlorthalidone daily. I have discussed with the patient in detail that she will need to obtain a primary care provider to help monitor and adjust her blood pressure medications. I have also advised the patient that she should seriously consider losing weight to help with lowering her blood pressure. (3) Morbid obesity: Code(s): E66.01 - Morbid (severe) obesity due to excess calories Status: Chronic Assessment and Plan: I have advised the patient that she should consider attempting to lose weight as this will likely help lower her elevated blood pressure. Additional Plan date of service was February 27, 2020 at approximately 2:30 a.m. [facility] Data of Consult Consult date: 02/27/20 Requesting Physician: Leland Romero MD Primary Care Provider: REUSE TECHNICIAN PHYSICIAN Consult Narrative Narrative: Thank you for consulting us to see this 34-year-old morbidly obese female who was admitted for a right ureteral stone, has underwent stent placement, and now found to have an elevated blood pressure. During the patient's hospitalization she was found to have elevated blood pressure which is new to her. She reports that she has had a left nephrectomy in the past. the patient reports that she has had some mild hematuria since having her stent placed but otherwise she denies any significant pain. She does report having an intermittent headache which improved after her blood pressure came down with medications. She does report that hypertension runs in her family. The patient is not known to have a PCP. Tonight she has no other complaints. Review of Systems Review of Systems: All systems reviewed & are unremarkable except as noted in HPI and below PMFSH Past Medical History Medical History Kidney stone Right ureteral calculus Surgical History Surgical History H/O left nephrectomy Family History Family History Father Nephrolithiasis Other Hypertension Social History Social History Smoking status: Never smoker Alcohol intake: current Drinks per week: 1 Substance use: never Substance use type: does not use Living arrangements: with family Spiritual care concerns: No Meds Home Medications and Allergies Home Medications Medication Instructions Recorded Confirmed Type hydrocodone-acetaminophen 1 tab PO Q8H PRN #12 tablet 02/26/20 Rx oxybutynin chloride 5 mg PO TID PRN #60 tablet MDD 3 02/26/20 Rx tablets tamsulosin [Flomax] 0.4 mg PO HS #30 cap 02/26/20 Rx amlodipine [Norvasc] 10 mg PO DAILY #30 tablet 02/27/20 Rx nitrofurantoin mo
[2020-02-27 06:00] VITALS: BP 138/97; PULSE 77; RESP 21; TEMP 36.7; O2SAT 100
[2020-02-27 06:17] LABS: Anion Gap 8 mmol/L (8-16); Blood Urea Nitrogen 9 mg/dL (7-17); Carbon Dioxide 30 mmol/L (22-30); Chloride 101 mmol/L (98-107); Cholesterol 206 mg/dL (0-200); Estimated CRCL calculation 96 ml/min; Estimated Glomerular Filt Rate > 60; Glucose 96 mg/dL (65-105); HDL Direct 36 mg/dL; Potassium 3.8 mmol/L (3.4-5.0); Sodium 139 mmol/L (137-145); Triglycerides 223 mg/dL (<150)
[2020-02-27 06:27] LABS: LDL Cholesterol Direct 136 mg/dL
--- NOTE | 2020-02-27 07:30 | WPDUROPN2 ---
Progress Note: A&P Assessment and Plan (1) Right ureteral calculus: Code(s): N20.1 - Calculus of ureter Status: Acute Assessment and Plan: Can go home today if cleared by the hospitalist. I would appreciate it if hospital service would prescribe her new blood pressure medication. We will contact patient to arrange outpatient stone management. (2) Hypertension: Qualifiers: Hypertension type: unspecified Qualified Code(s): I10 - Essential (primary) hypertension Code(s): I10 - Essential (primary) hypertension Status: Acute (3) Solitary right kidney: Code(s): Q60.0 - Renal agenesis, unilateral Status: Acute Subjective Subjective Date/Time Seen: 02/27/20 07:30 tolerate her stent without complaints. Seen by hospitalist. We appreciate the seen her for her high blood pressure. Note some urinary frequency which is characteristic of her stent. Review of Systems Review of Systems: All systems reviewed & are unremarkable except as noted in HPI and below Exam Const: General: cooperative and healthy appearing Nutritional Appearance: obese HENMT: Head: normal to inspection Eyes: General: appearance normal, both eyes and all related structures Resp: Effort & Inspection: normal respiratory effort and able to speak in complete sentences Neuro: General: patient oriented x3 Objective Data Vital Signs Vital Signs: Vital Signs - 24 hr 02/26/20 13:00 02/26/20 14:00 02/26/20 22:00 Temperature 98.4 F 97.4 F L Pulse Rate 79 111 H 92 Respiratory Rate 18 18 21 H Blood Pressure 164/102 H 148/83 H 148/86 H Pulse Oximetry 100 100 100 02/27/20 06:00 Temperature 98.1 F Pulse Rate 77 Respiratory Rate 21 H Blood Pressure 138/97 H Pulse Oximetry 100 Intake/Output Intake/Output: Intake & Output 02/24/20 02/25/20 02/26/20 02/27/20 23:59 23:59 23:59 23:59 Intake Total 4070 4070 950 Output Total 1380 2625 1250 Balance 2690 1445 -300 Meds/Results Medications: Active Medications Generic Name Dose Route Start Last Admin Trade Name Freq PRN Reason Stop Dose Admin Hydrocodone Bitart/Acetaminophen 1 tab 02/25/20 11:46 02/26/20 05:21 Hydrocodone/Acetaminophen (*Crx) 5-325 Mg Tablet PO 1 tab Q6H PRN Administration Pain Rated 1-6 Hydralazine HCl 10 mg 02/27/20 01:10 Hydralazine Hcl 20 Mg/Ml Vial IV PUSH 02/28/20 07:00 Q8H PRN see comment Ceftriaxone Sodium 2 gm in 100 mls @ 200 mls/hr 02/26/20 09:00 02/26/20 09:00 Rocephin 2 Gm/D5w 100 Ml IVPB Infused Q24H JEFF Infusion Morphine Sulfate 2 mg 02/25/20 11:46 Morphine Sulfate (*Crx) 2 Mg/Ml Inj IV PUSH Q4H PRN Pain Rated 7-10 Ondansetron HCl 4 mg 02/25/20 06:29 02/26/20 08:20 Ondansetron Inj 4 Mg/2 Ml Vial IV PUSH 4 mg Q4H PRN Administration Nausea Oxybutynin Chloride 5 mg 02/25/20 11:46 Oxybutynin Chloride 5 Mg Tablet PO TID PRN Bladder Spasm Polyethylene Glycol 17 gm 02/26/20 09:00 02/26/20 08:21 Polyethylene Glycol 3350 17 Gm Powd.Pack PO 17 gm QAM [facility] Administration Tamsulosin HCl 0.4 mg 02/27/20 09:00 Tamsulosin Hcl 0.4 Mg Capsule PO QAM [facility] Radiology Results: ITS Impressions Abdomen/Pelvis CT 02/25/20 12:28 IMPRESSION: 1. 6 mm stone of the proximal right ureter causing moderate right hydroureteronephrosis. 2. Cholelithiasis without evidence of cholecystitis. 3. 5 mm nodule of the right lower lobe, likely benign. Correlation with prior imaging. Abdomen X-Ray 02/25/20 13:11 IMPRESSION: 1. Right internal ureteral stent in expected position. Retrograde Pyelogram 02/25/20 13:13 IMPRESSION: 1. Right internal ureteral stent in expected position. 2. Mild right hydroureteronephrosis. Please refer to procedure note for full details. Labs Labs: Laboratory Results - last 24 hr 02/27/20 02/27/20 05:25 05:25 Sodium 139 Potassium 3.8 Chloride 101 Carb
[2020-02-27] MEDS: TAMSULOSIN HCL 0.4 MG CAPSULE PO (09:42)
[2020-02-27] MEDS: polyethylene glycoL 3350 17 GM POWD.PACK PO (09:42)
[2020-02-27 14:00] VITALS: BP 172/113; PULSE 94; RESP 19; TEMP 36.7; O2SAT 99
--- NOTE | 2020-02-27 14:13 | PM.DS ---
DS: Admitting Diagnosis Admitting Diagnosis Admitting Diagnosis: Obstructive uropathy/right proximal ureteral stone DS: Discharge Diagnosis Discharge Diagnosis (1) Right ureteral calculus: Code(s): N20.1 - Calculus of ureter Status: Acute Assessment and Plan: Urologist cleared her for discharge to home titrated her oral anti-hypertensives discharged on 10mg Norvasc daily instructed her to check BPs daily at home Follow up with PCP increase exercise/activity daily work on dietary control and calorie counting - in weight loss efforts Urologist to contact patient to arrange outpatient stone management. (2) Hypertension: Qualifiers: Hypertension type: unspecified Qualified Code(s): I10 - Essential (primary) hypertension Code(s): I10 - Essential (primary) hypertension Status: Acute Assessment and Plan: titrated her oral anti-hypertensives discharged on 10mg Norvasc daily instructed her to check BPs daily at home Follow up with PCP increase exercise/activity daily work on dietary control and calorie counting - in weight loss efforts (3) Solitary right kidney: Code(s): Q60.0 - Renal agenesis, unilateral Status: Acute Assessment and Plan: avoiding nephrotoxic medications TODAY:Right Renal Duplex Doppler U/S r/o renovascular disease. Left nephrectomy.no arterial sclerosis demonstrated on that exam.IMPRESSION: No renal artery stenosis suspect managing and treating elevated BP with medications educated patient to continue to monitor her BPs and HR at home for life long BP control f/u with PCP to monitor labs and BPs follow up with Urologist regarding Renal US study findings. DS: Summary Time Spent with Patient Time attestation: Total time spent providing and/or coordinating discharge services:90 minutes Exam Const: General: cooperative, healthy appearing, comfortable, no acute distress, well developed, alert and awake Nutritional Appearance: obese morbidly obese Orientation/consciousness: oriented to person, oriented to place, oriented to time and patient oriented x3 HENMT: Head: normal to inspection and atraumatic Ears: hearing grossly normal bilaterally General nose exam: Normal external nose present Face and sinus: normal facial exam and face symmetric Mouth: Yes Normal oral and palatal mucosa present and Yes oropharynx normal Throat: posterior oropharynx normal Eyes: General: appearance normal, both eyes and all related structures Pupils: Equal, round and reactive pupils present EOM: EOMs intact bilaterally Neck: Neck: supple and no JVD Thyroid: thyroid normal Lymphatic: lymphadenopathy not noted Chest: Chest palpation & inspection: normal inspection of the chest Resp: Effort & Inspection: normal respiratory effort, able to speak in complete sentences, normal respiratory pattern, no audible wheezes, no cough, respiratory effort not decreased and no retractions Auscultation: clear to auscultation bilaterally Cardio: Jugular venous distension: JVD present Rate: regular rate Rhythm: regular rhythm Heart sounds: no murmurs GI: Inspection: normal to inspection, Pannus present and obesity Auscultation: normal bowel sounds Skin: General skin exam: normal color and no rashes or lesions noted Rashes: no rashes Neuro: General: oriented to person, oriented to place, oriented to time, patient oriented x3, Normal light touch and pain sensation and no focal motor deficits Cranial nerves: Yes CN's II-XII intact bilaterally and Yes Equal, round and reactive pupils present Speech: normal speech Motor exam (neuro): 5/5 motor strength present throughout Sensory Exam: normal sensation Extrem: General: normal to inspection and no edema Psych: Mental Status: mental status grossly normal Affect: normal affect DS: Data Data Completed and Pending Labs on day of discharge: Labs from last 24 hours 02/27/20 02/27/20 05:25 05:25 Sodium 139 [place]
[2020-02-27] MEDS: amLODIPine BESYLATE 5 MG TABLET PO ×2 (15:22→17:50)
[2020-02-27 15:23] VITALS: BP 170/100
[2020-02-27 17:18] VITALS: BP 160/102; PULSE 82; RESP 16; O2SAT 100
--- NOTE | 2020-02-27 17:25 | PC.NURSE ---
Called B/p to Ruth Beckham NP. Orders received.
== END 2020-02-27 18:20 | disposition home or self-care (01) | DRG 660 ==
LOC: ANHED 01:46 → ANH2MED 07:55
PROVIDERS: Family Medicine; Admitting Provider Urology; Emergency Provider General Practice; Visit Provider Nurse Practitioner
PROC: 0T768DZ Dilation of Right Ureter with Intraluminal Device, Via Natural or Artificial Opening Endoscopic (ICD-10-PCS; CPT 52352; principal; 2020-02-25 09:15)
DX: N13.6 Pyonephrosis (principal); Z68.42 Body mass index [BMI] 45.0-49.9, adult; E66.01 Morbid (severe) obesity due to excess calories; I10 Essential (primary) hypertension; B96.20 Unspecified Escherichia coli [E. coli] as the cause of diseases classified elsewhere; B95.2 Enterococcus as the cause of diseases classified elsewhere; Z90.5 Acquired absence of kidney
CPT/HCPCS: 36415; 74018; 74176; 74420; 80048; 80053; 80061; 81001; 81025; 84443; 85025; 85027; 87077; 87086; 87088; 87186; 87635; 93976; 96361; 96365; 96375; 96376; 99285; A9270; C1758; C1769; C2617; C9803; G0378; J0131; J0360; J0696; J1100; J1170; J2250; J2405; J2704; J3010; J7030; J7120; Q9966; U0003

== ENCOUNTER 2020-07-26 09:29 | Outpatient (CLI) | payer OTHER, SELFPAY ==
--- NOTE | ~2020-07-26 | US_ITS ---
EXAMINATION: US venous doppler LE RT EXAM DATE: 07/26/2020 10:02 INDICATION: Right leg edema. TECHNIQUE: Multiple grayscale, color flow and Doppler images of the right lower extremity deep venous system were obtained and reviewed. There is no prior study for comparison. FINDINGS: The right common femoral, femoral and profunda veins demonstrate normal color flow, respira tory variation, augmentation and compressibility. Compressibility, color flow confirmed within the r ight popliteal, posterior tibial, peroneal, and greater saphenous veins. IMPRESSION: 1. No right lower extremity deep venous thrombosis. Reviewed, dictated and finalized at location A.
== END 2020-07-26 09:30 | disposition home or self-care (01) ==
PROVIDERS: PCP Family Medicine; Visit Provider Family Medicine
DX: R60.0 Localized edema (principal)
CPT/HCPCS: 93971

== ENCOUNTER 2022-07-03 14:27 | Outpatient (CLI) | payer OTHER, SELFPAY ==
--- NOTE | ~2022-07-03 | XR_ITS ---
EXAMINATION: XR abdomen/kub 1V INDICATION: Dysuria TECHNIQUE: Supine views of the abdomen were obtained on 2 radiographs. COMPARISON: 02/25/2020 FINDINGS: There are multiple phleboliths of the pelvis. No definite urolithiasis is identified. The b owel gas pattern is normal. There is mild osteoarthritis of the hips. An IUD is noted. IMPRESSION: 1. No urolithiasis identified. Reviewed, dictated and finalized at location L.
[2022-07-03 15:50] LABS: Appearance Urine Clear (Clear); Bacteria Urine Rare /hpf; Bilirubin Urine Negative (Negative); Blood Urine Negative (Negative); Color Urine Yellow (Yellow); Glucose Urine UA Negative (Negative); Ketones Urine Negative (Negative); Leukocyte Esterase Ur Trace LEU/UL (NEGATIVE); Nitrate Urine Negative (Negative); Non Pathogenic Casts 0-2; Protein Urine 1+ mg/dL (Negative); RBC Urine 0-2 /hpf (0-2); Squamous Epithelial Cell Urine Occasional /hpf (Few); Urobilinogen Urine 0.2 mg/dL (<2.0); WBC Urine 0-5 /hpf (0-3)
[2022-07-03 15:54] LABS: Add Urine Microscopic? YES
== END 2022-07-03 14:28 | disposition home or self-care (01) ==
LOC: ANHIMG 14:27
PROVIDERS: PCP Family Medicine; Visit Provider Internal Medicine Nephrology
DX: R30.0 Dysuria (principal); N20.0 Calculus of kidney
CPT/HCPCS: 74018; 81001; 87086; 87088

== ENCOUNTER 2022-08-12 16:23 | Outpatient (CLI) | payer OTHER, SELFPAY ==
--- NOTE | ~2022-08-12 | US_ITS ---
EXAMINATION: US retroperitoneal comp DATE: 08/12/2022 16:54 INDICATION: KIDNEY STONES TECHNIQUE: Multiple grayscale and Doppler ultrasound images of the kidneys were obtained. COMPARISON: CT abdomen pelvis 02/25/2020. FINDINGS: The right kidney measures 13.2 x 6.7 x 6.2 cm. The left kidney is surgically absent. The right kidney demonstrates normal parenchymal echogenicity. There is no hydronephrosis. The bladder is normal, wit h a single ureteral jet on the right. IMPRESSION: Status post left nephrectomy. Otherwise unremarkable renal sonogram findings. Reviewed, dictated and finalized at location K.
== END 2022-08-12 16:24 | disposition home or self-care (01) ==
PROVIDERS: PCP Family Medicine; Visit Provider Urology
DX: N20.0 Calculus of kidney (principal)
CPT/HCPCS: 76770

== ENCOUNTER 2023-01-08 07:07 | Outpatient (CLI) | payer OTHER, SELFPAY ==
[2023-01-08 07:44] LABS: Basophils Absolute Auto 0.1 K/mm3 (0.0-0.1); Basophils Percent Auto 0.8 % (0.2-1.2); Eosinophils Absolute Auto 0.3 K/mm3 (0-0.3); Hematocrit 36.8 % (37.0-47.0); Hemoglobin 11.8 g/dL (12.0-15.0); Immature Granulocyte Absolute 0.07 K/mm3 (0.00-0.031); Immature Granulocyte Percent A 0.7 % (0-0.5); Lymphocytes Absolute Auto 2.44 K/mm3 (0.9-3.2); Lymphocytes Percent Auto 23.9 % (18.3-44.2); Mean Corpuscular HGB Conc 32.1 g/dl (32-36); Mean Corpuscular Hemoglobin 26.7 pg (26-34); Mean Corpuscular Volume 83.3 fl (80-100); Mean Platelet Volume 11.1 fl (7.4-10.4); Monocytes Absolute Auto 0.7 K/mm3 (0.1-0.6); Neutrophils Absolute Auto 6.6 K/mm3 (1.3-6.7); Neutrophils Percent Auto 64.6 % (45.5-73.1); Platelet Count Result 371 k/mm3 (150-375); Red Blood Count 4.42 M/mm3 (4.2-5.4); Red Cell Distribution Width 15.4 % (11.5-14.5); White Blood Count 10.2 K/mm3 (4.5-10.0)
[2023-01-08 08:06] LABS: Alanine Aminotransferase 24 U/L (6-35); Albumin Level 4.2 g/dL (3.5-5.1); Alkaline Phosphatase 106 U/L (38-126); Anion Gap 8 mmol/L (8-16); Aspartate Amino Transferase 26 U/L (14-36); Bilirubin,Total 0.7 mg/dL (0.2-1.3); Blood Urea Nitrogen 9 mg/dL (7-17); Carbon Dioxide 26 mmol/L (22-30); Chloride 102 mmol/L (98-107); Cholesterol 220 mg/dL (0-200); Estimated Glomerular Filt Rate > 60; Glucose 94 mg/dL (65-110); HDL Direct 30 mg/dL; Potassium 3.8 mmol/L (3.4-5.0); Sodium 136 mmol/L (137-145); Triglycerides 246 mg/dL (<150)
[2023-01-08 08:17] LABS: LDL Cholesterol Direct 122 mg/dL
== END 2023-01-08 07:08 | disposition home or self-care (01) ==
LOC: ANHLAB 07:08
PROVIDERS: PCP Family Medicine; Visit Provider Family Medicine
DX: Z13.29 Encounter for screening for other suspected endocrine disorder (principal); Z13.220 Encounter for screening for lipoid disorders; I10 Essential (primary) hypertension
CPT/HCPCS: 36415; 80053; 80061; 84443; 85025

== ENCOUNTER 2024-01-28 08:38 | Outpatient (CLI) | payer OTHER, SELFPAY ==
--- NOTE | ~2024-01-28 | MM_ITS ---
EXAMINATION: MM screening sunitha BI w eduar HISTORY: Screening TECHNIQUE: Craniocaudal and mediolateral oblique 3-D tomosynthesis images were obtained and synthetic 2-D images were generated. CAD analysis was submitted and interpreted. COMPARISON: No prior mammogram is available for comparison at this institution. BREAST PARENCHYMAL COMPOSITION: Not Dense. The breasts are almost entirely fatty. FINDINGS: There is no evidence of suspicious mass, calcification, or architectural distortion to sugg est malignancy in either breast. There has been no suspicious interval change. IMPRESSION: 1. No mammographic evidence of malignancy. 2. Recommend routine screening mammography in one year. BI-RADS Category 1: Negative Reviewed, dictated and finalized at location B.
== END 2024-01-28 08:39 | disposition home or self-care (01) ==
PROVIDERS: PCP Family Medicine; Visit Provider Nurse Practitioner Family
DX: Z12.31 Encounter for screening mammogram for malignant neoplasm of breast (principal)
CPT/HCPCS: 77063; 77067

== ENCOUNTER 2024-12-05 11:17 | Outpatient (CLI) | payer OTHER, SELFPAY ==
--- OUTSIDE RECORDS SUMMARY | 2006-05-11 19:00 | XMS_ITS | Continuity of Care Document ---
Author Organization [facility] Address [address] [place] [address] Phone Care Team Providers Care Sustainability Communicator Name Role Phone Sky Buitrago MD Unavailable Unavailable Results Test Name Date and Time Measure Units Reference Range Abnormal Flag Status Comments Panel Description: [facility] Results Facility 533 Unknown INDURATION 00:00:00 0 MM Unknown PPD 00:00:00 neg Unknown Advance Directives Directive Yes / No Effective Date File Name No Information Encounters Encounter Description Practice Location Reason(s) For Visit Diagnoses Date Provider Providers Copied on Encounter [facility], [address], [place], [place], [id number], [place] tel:[phone] [facility] SCREENING-PU LMONARY TBANEMIA NOSROUTINE MEDICAL EXAM Iftikhar Swanson. [address] , [address], [place], [place], [address], [place]. tel:[phone] Family History Family Member Type Diagnosis Age At Onset No Information Payers Payer name Insurance type Covered constitution party ID Authoriza tion(s) No Information Social [...]
--- OUTSIDE RECORDS SUMMARY | 2024-12-05 10:30 | XMS_ITS | Encounter Summary ---
Author Organization [facility] Address [address] [place] [address] Care Team Providers Care Spar Finisher Name Role Phone Unavailable Primary Care Provider Unavailabl e Reason for Referral * Laboratory Services (Routine) - Open Specialty Diagnoses / Procedures Referred By Princess t Referred To Contact Diagnoses Leukocytosis, unspecified type Procedures BCR/ABL1, QUANTITATIVE W/REFLEX Justin Marcial MD [address] [place] [address] Phone: tel: fax: Referral ID Status Reason Start Date Expiration Date Visits Re quested Visits Authorized [id number] Open 12/05/2024 01/05/2026 1 1 Reason for Visit * Reason Comments Establish Care Encounter Details Date Type Department Care Team (Late st Contact Info) Description 12/05/2024 10:30 AM CDT Office Visit [facility] Oncology and Hematology - [place] [address] [place] [address] Justin Marcial MD [address] [place] [address] Leukocytosis, unspecified type (Primary Dx) Social History Tobacco Use Types Packs/Day Years Used Date Smoking Tobacco: Never Smokeless Tobacco: Never Tobacco Cessation:Counseling Given: Not Answered Alcohol Use Standard Drinks/Week Comments Never 0 (1 standard drink = 0.6 oz pur e alcohol) Comments Unknown Sex and Gender Information Value Date Recorded Sex Assigned at Not on file Legal Sex Female 1:49 PM CDT Gender Identity Not on file Sexual Orientation Not on file documented as of this encounter Last Filed Vital Signs Vital Sign Reading Time Taken Comments Blood Pressure 156/98 12/05/2024 10:38 AM CDT Pulse 71 12/05/2024 10:33 AM CDT Temperature 36.1 C (96.9 F) 12/05/2024 10:33 AM CDT Respiratory Rate 15 12/05/2024 10:3 3 AM CDT Oxygen Saturation 95% 12/05/2024 10: 33 AM CDT Inhaled Oxygen Concentration - - Weight 125.4 kg (276 lb 6.4 oz) 025 10:33 AM CDT Height 162.6 cm (5' 4) 12/05/2024 10:3 3 AM CDT Body Mass Index 47.44 12/05/2024 10:33 AM CDT documented in this encounter Progress Notes * Justin Marcial MD - 12/05/2024 11:52 AM CDT Hematology-oncology consult Note Requesting Physician Primary Care Physician No primary care provider on file. Problem list There is no problem list on file for this patient. Previous TREATMENT ? Measurable Disease ? Reason for Visit Clair Cardenas is a 39 y.o. female who was referred for consultation for leukocytosis. History of present illness This is a 39-year-old obese female with history of hypertension and hyperlipidemia as well as left-sided nephrectomy in 2014 due to kidney stone referred to me for leukocytosis going on since January 2024. Patient had recent routine labs done on January 27, 2024 that showed WBC of 11.4. Repeat labs in July 2024 showed persistently elevated WBC count of 11.6. She denies any arthralgia and rash. Denies any signs of upper respiratory infection and UTI. She has no night sweats fevers andchills. Her weight and appetite stable. She has been complaining of mild tiredness and fatigue. Denies any new lumps bumps or lymphadenopathy. No other new complaints. Past Medical History Past Medical History: Diagnosis Date Hyperlipidemia Hypertension Surgical History Past Surgical History: Procedure Laterality Date HX NEPHRECTOMY Medications Current Outpatient Medications Medication Sig Dispense Refill rosuvastatin (CRESTOR) 10 mg tablet Take 10 mg by mouth daily. losartan (COZAAR) 25 mg tablet Take 25 mg by mouth daily. No current facility-administered medications for this visit. Allergies No Known Allergies Immunizations: There is no immunization history on file for this patient. Family History Family History Problem Relation Name Age of Onset Heart Disease Father Stroke Mother Breast Cancer Mother No Known Problems Brother No Known Problems Child Social History Social History Tobacco Use Smoking status: Never Smokeless tobacco: Never Substance Use Topics Alcohol use: Never Review of Systems Constitutional: Patient did not mention fever; no night sweats; no anorexia; no weight loss; no fatique NEENT: Patient did not mention headache; no change in vision; no change in hearing; no sore throat;no dysphagia Respiratory: Patient did not mention shortness of breath; no pleuritic chest pain; no cough; no hemoptysis Cardiac: Patient did not mention cardiac-like chest pain; no palpitations; no orthopnea; no PND; noDOE Breasts: Patient did not mention tenderness; no masses GI: Patient did not mention abdominal pain; no nausea; no vomiting; no diarrhea; no hematochezia; no melena : Patient did not mention dysuria; no frequency; no hesitancy; no hematuria FURNACE MECHANIC HELPER: Musculosketetal: Patient did not mention bone pain; no arthralgia; no joint swelling; no myalgia; Skin: Patient did not mention pruritis; no rash; no petechiae; no ecchymoses Endocrine: Patient did not mention polydipsia; no polyuria; no unusual weight gain Neuro: Patient did not mention headache; no change in vision; no sensory changes; no muscle weakness; no confusion; no seizures Psych: Patient did not mention anxiety; no depression; Physical Exam Vitals: As per nursing note Constitutional: Well developed, well nourished, no acute distress, non-toxic appearance Teeth and gum. No signs of infection or swelling. Eyes: PERRL, conjunctiva normal HEENT: Atraumatic, external ears normal, nose normal, oropharynx moist, no pharyngeal exudates. no sinus tenderness Neck- normal range of motion, no tenderness, supple Respiratory: No respiratory distress, normal breath sounds, no rales, no wheezing Cardiovascular: Normal rate, normal rhythm, no murmurs, no gallops, no rubs GI: Soft, nondistended, normal bowel sounds, nontender, no splenomegaly, no hepatomegaly, no mass, no rebound, no guarding : No costovertebral angle tenderness Musculoskeletal: No edema, no tenderness, no deformities. Back- no tenderness Integument: Well hydrated, no rash, Digits and nails inspection normal Lymphatic: No lymphadenopathy noted Neurologic: Alert & oriented x 3, CN 2-12 normal, normal motor function, normal sensory function, no focal deficits noted Psychiatric: Speech and behavior appropriate ? labs No results found for this or any previous visit (from the past 24 hours). Labs from July 2024 showed WBC 11.6 hemoglobin 12.7 MCV 83 platelets 363,000 neutrophils 65% lymphocyte 24% Pathology ? Imaging & Other Studies Performance Status? Assessment / Plan: ? Leukocytosis. Patient is a 39-year-old obese female who has been in good health except history of hypertension, hyperlipidemia and left-sided nephrectomy due to complication from the kidneystone in 2014. She had routine labs done during the visit in January 2024 that showed elevated WBC count. She was totally asymptomatic. She denies any night sweats fevers and chills. Denies any weight loss. On my examination there is no evidence of lymphadenopathy and hepatosplenomegaly. I have reviewed the differential diagnosis of leukocytosis with the patient. She has no etiology for reactive process at this time. Will order the workup for leukocytosis that would include CBC with differential, CMP, C-reactive protein, sedimentation rate, BCR-ABL translocation and flow cytometric analysis for leukemia. I will discuss the finding with her in 3 weeks. I have answered all the questions to patient satisfaction. Hyperlipidemia. Patient is on Crestor. Hypertension. She is on losartan. Thank you very much for allowing me to participate in Clair Cardenas's evaluation and management. Please feel free to contact if I can be of any further assistance in your patient???s care requiring hematology or oncology evaluation. Sincerely, ? ? Justin Marcial M.D. cell TOBACCO COUNSELING She is not a tobacco/nicotine user. Justin Marcial MD ,12/05/2024 11:52 AM ? Total time spent 60 minutes, two third of the total time spent counseling patient [id number]. CC:? documented in this encounter Plan of Treatment Upcoming Encounters Date Type Department Care Team (Late Contact Info) Description 12/27/2024 4:30 PM CDT Telephone Check Up [facility] Oncology and Hematology - [place] [address] [place] [address] Justin Marcial MD [address] [facility] [facility] [address] [place] [address] Scheduled Orders Name Type Priority Associated Diagnoses Orde r Schedule CBC WITH DIFFERENTIAL Lab Stat Leukocytosis, unspecified type Expected: 12/05/2024, Expires: 12/05/2025 C-REACTIVE PROTEIN Lab Routine Leukocytosis, unspecified type Expected: 12/05/2024, Expires: 12/05/2025 COMPREHENSIVE METABOLIC PANEL Lab Stat Leukocytosis, unspecified type Expected: 12/05/2024, Expires: 12/05/2025 SEDIMENTATION RATE Lab Routine Leukocytosis, unspecified type Expected: 12/05/2024, Expires: 12/05/2025 FLOW CYTOMETRY PANEL Lab Routine Leukocytosis, unspecified type Expected: 12/05/2024, Expires: 12/05/2025 BCR/ABL1, QUANTITATIVE W/REFLEX Lab Routine Leukocytosis, unspecified type Expected: 12/05/2024, Expires: 12/05/2025 documented as of this encounter Visit Diagnoses Diagnosis Leukocytosis, unspecified type- Primary documented in this encounter
--- NOTE | 2024-12-05 11:29 | CY_PTH ---
PATIENT: Clair Cardenas LOC: ANHLAB #:[id number] AGE/SX: 39/F ROOM: RE12/05/[address]: Justin Marcial MD : 1985 BED: DIS: 12/05/2024 SPEC #: [id number] RECD: 12/05/24 11:59 STATUS: MARIO REQ #: [id number] DIMPLE: 12/05/24 11:[address]: Justin Marcial DEPT: [facility] Cytology RECD BY: Heaven Green ENTERED: 12/05/24 11:59 SP TYPE: Cytology OTHR DR: Angelina Gomes APRN Tissues: A - Peripheral Blood Procedures: Flow Cytometry
[2024-12-05 11:34] LABS: Hematocrit 39.5 % (37.0-47.0); Hemoglobin 12.6 g/dL (12.0-15.0); Immature Granulocyte Percent A 0.5 % (0-0.5); Lymphocytes Absolute Auto 3.19 K/mm3 (0.9-3.2); Mean Corpuscular HGB Conc 31.9 g/dl (32-36); Mean Corpuscular Hemoglobin 26.5 pg (26-34); Mean Corpuscular Volume 83.0 fl (80-100); Nucleated Red Blood Cells Absolute Auto 0.000 K/mm3 (0.0-0.012); Nucleated Red Blood Cells Perc 0.0 % (0.0-0.2); Platelet Count Result 369 k/mm3 (150-375); Red Blood Count 4.76 M/mm3 (4.2-5.4); White Blood Count 12.1 K/mm3 (4.5-10.0)
--- OUTSIDE RECORDS SUMMARY | 2024-12-05 11:58 | XMS_ITS | Clinical Summary ---
Author Organization [facility] Address [address] [place] [address] Care Team Providers Care Grocery Clerk Selling Name Role Phone Maureen Hallfer Primary Care Provider [phone] Allergies No known active allergies Medications amLODIPine 10 MG tablet Take 10 mg by mouth nightly. Active tamsulosin 0.4 MG Cap Take 0.4 mg by mouth daily. Active Active Problems Problem Noted Date Diagnosed Date Ureteral stone with hydronephrosis 03/15/2020 Solitary right kidney 03/15/2020 Family History Medical History Relation Comments Heart Disease Father Hypertension Father Heart Disease Mother Hypertension Mother Stroke Mother Relation Status Comments Father Alive Mother Alive Son Alive Social History Tobacco Use Types Packs/Day Years Used Date Smoking Tobacco: Never Smokeless Tobacco: Never Alcohol Use Standard Drinks/Week Comments Not Currently 0 (1 standard drink = 0.6 oz pur e alcohol) Comments No Sex and Gender Information Value Date Recorded Sex Assigned at Not on file Legal Sex Female 8:11 PM CDT Gender Identity Not on file Sexual Orientation Not on file Last Filed Vital Signs Vital Sign Reading Time Taken Comments Blood Pressure 154/107 03/15/2020 12:12 PM GRINDER HARDBOARD Pulse 89 03/15/2020 12:12 PM GRINDER HARDBOARD Temperature 37.1 C (98.8 F) 03/15/2020 12:12 PM GRINDER HARDBOARD Respiratory Rate 16 03/15/2020 12:12 PM GRINDER HARDBOARD Oxygen Saturation 95% 03/15/2020 12:12 PM GRINDER HARDBOARD Inhaled Oxygen Concentration - - Weight 113.4 kg (250 lb) 03/07/2020 10:21 AM GRINDER HARDBOARD Height 162.6 cm (5' 4) 03/07/2020 10:21 AM GRINDER HARDBOARD Body Mass Index 42.91 03/07/2020 10:21 AM GRINDER HARDBOARD Plan of Treatment Health Maintenance Due Date Last Done Comments Cervical Cancer Screening Pa p Smear (Age 30 to 64) Every 3 Years 1985 Annual Physical 07/15/1986 Hepatitis C 07/15/2001 DTaP, Tdap and Td Vaccines ( 1 - Tdap) 07/15/2002 Hepatitis B Vaccines (1 of 3 - 19+ 3-dose series) 07/15/2002 HPV Vaccines (1 - 3-dose SCD M series) 07/15/2010 Cervical Cancer Screening Pa p with HPV Testing (Age 30 to 64) Every 5 Years 07/15/2013 Cervical Cancer Screening with HPV 07/15/2013 Mammogram Screening 2023 COVID-19 Vaccine (2023-2 5 season) 2023 Meningococcal B Vaccine Aged Out No l onger eligible based on patient's age to complete this topic Meningococcal Vaccine Aged Out No migue berta eligible based on patient's age to complete this topic Pneumococcal Vaccine: Pediat rics (0 to 5 Years) and At-Risk Patients (6 to 49 Years) Aged Out No longer eligible b ased on patient's age to complete this topic RSV Immunizations Under 20 Months Aged Out No longer eligible based on patient's age to complete this topic Medical Devices Implanted Type Area Recycling Manager Device Identifier Shelf Expiration Date Model / Serial / Lot Stent Ureteral Pigtail 6fr 24cm Crv Taper Tip - [id number] Implanted:Qty: 1 on 03/15/2020 by Leland Romero MD at [facility] Stent Right: Ureter [employer] 06/16/2022 [id number] / / [id number] Insurance Care Teams Grocery Clerk Selling Relationship Specialty Start Date End Date Natalya Hall DO PCP - General FAMILY PRACTICE 03/15/20
--- OUTSIDE RECORDS SUMMARY | 2024-12-05 11:58 | XMS_ITS | Encounter Summary ---
Author Organization [facility] Address [address] [place] [address] Care Team Providers Care Lime Spreader Name Role Phone Isabel Natalya Primary Care Provider [phone] Encounter Details Date Type Department Care Team (Late st Contact Info) Description 03/07/[address] [facility] Pre-Admission Testing [address] [place], [place] [address] Leland Romero MD [address] [facility] [place], [place] [address] Social History Tobacco Use Types Packs/Day Years Used Date Smoking Tobacco: Never Smokeless Tobacco: Never Alcohol Use Standard Drinks/Week Comments Not Currently 0 (1 standard drink = 0.6 oz pur e alcohol) Comments No Sex and Gender Information Value Date Recorded Sex Assigned at Not on file Legal Sex Female 8:11 PM CDT Gender Identity Not on file Sexual Orientation Not on file COVID-19 Exposure Response Date Recorded In the last month, have you been in contact with someone who was confirmed or suspected to have Coronavirus / COVID-19? No / Unsure 03/07/2020 10:21 AM PRESIDENT & CEO documented as of this encounter Plan of Treatment Not on file documented as of this encounter Results * PRE-SURGICAL/PRE-PROCEDURE CORONAVIRUS (COVID 19) (03/12/2020 9:12 AM PRESIDENT & CEO) CORONAVIRUS SARS COV 2 PCR (RESP) NOT DETECTED NOT DETECTED 03/14/2020 5:31 AM PRESIDENT & CEO [facility] Comment: A Not Detected (negative) test result for this test means that SARS- CoV-2 RNA was not present in the specimen above the limit of detection. A negative result does not rule out the possibility of COVID-19 and should not be used as the sole basis for treatment or patient management decisions. If COVID-19 is still suspected, based on exposure history together with other clinical findings, re-testing should be considered in consultation with public health authorities. Laboratory test results should always be considered in the context of clinical observations and epidemiological data in making a final diagnosis and patient management decisions. Please review the Fact Sheets and FDA authorized labeling available for health care providers and patients using the following websites: https://www.mSeller.[email or web address]/home/Covid-19/HCP/[facility]/fact- sheet.html https://www.mSeller.ISpottedYou.com/home/Covid-19/Patients/ [facility]/fact-sheet.html This test has been authorized by the FDA under an Emergency Use Authorization (EUA) for use by authorized laboratories. Due to the current public health emergency, [facility] is receiving a high volume of samples from a wide variety of swabs and media for COVID-19 testing. In order to serve patients during this public health crisis, samples from appropriate clinical sources are being tested. Negative test results derived from specimens received in non-commercially manufactured viral collection and transport media, or in media and sample collection kits not yet authorized by FDA for COVID-19 testing should be cautiously evaluated and the patient potentially subjected to extra precautions such as additional clinical monitoring, including collection of an additional specimen. Methodology: Nucleic Acid Amplification Test (NAAT) includes RT-PCR or TMA Additional information about COVID-19 can be found at the [facility] website: www.Bevy.ISpottedYou.com/Covid19. Test performed at [facility] [address] [id number] Director: JOSE C BAUM DO,MPH FIRST TEST NO 03/12/2020 10:29 AM [facility] EMPLOYED IN HEALTHCARE NO 03/12/2020 10:29 AM [facility] SYMPTOMATIC DEFINED BY CDC NO 03/12/2020 10:29 AM [facility] DATE OF SYMPTOM ONSET UNKNOWN 03/12/2020 10:49 AM PRESIDENT & CEO [facility] HOSPITALIZATION STATUS NO 03/12/2020 10:29 AM PRESIDENT & CEO [facility] PATIENT IN ICU NO 03/12/2020 10:29 AM PRESIDENT & CEO [facility] RESIDENT OF [facility] CARE NO 03/12/2020 10:29 AM PRESIDENT & CEO [facility] NOT 03/12/2020 10:29 AM PRESIDENT & CEO [facility] PATIENT'S RACE WHITE OR 03/12/2020 10:29 AM PRESIDENT & CEO [facility] ETHNICITY NONHISPANIC 03/12/2020 10:29 AM PRESIDENT & CEO [facility] SOURCE (QST) NASOPHARYNGEAL SWAB 03/12/2020 10:29 AM PRESIDENT & CEO [facility] NASOPHARYNGEAL SWAB / Unknown 03/12/2020 9:12 AM PRESIDENT & CEO Leland Romero MD MICROBIOLOGY - GENER AL ORDERABLES Final Result Performing Organization Address City/State/[facility] Co de Phone Number [facility] [address] [place] [address], [place] [phone] [facility] [address] documented in this encounter Visit Diagnoses Diagnosis Pre-op exam- Primary Preoperative examination, unspecified documented in this encounter Additional Health Concerns Infection Onset Date Last Indicated Resolved Time COVID-19 Rule Out 03/12/2020 03/12/2020 03/14/2020 5:31 AM PRESIDENT & CEO documented as of this encounter Care Teams Lime Spreader Relationship Specialty Start Date End Date Natalya Hall DO PCP - General FAMILY PRACTICE 03/15/20 documented as of this encounter
--- OUTSIDE RECORDS SUMMARY | 2024-12-05 11:58 | XMS_ITS | Clinical Summary ---
Author Organization [facility] Address [address] [place] [address] Care Team Providers Care Dining Room Attendant Name Role Phone Unavailable Primary Care Provider Unavailabl e Allergies No known active allergies Medications rosuvastatin (CRESTOR) 10 mg tablet Take 10 mg by mouth daily. Active losartan (COZAAR) 25 mg tablet Take 25 mg by mouth daily. Active Active Problems No known active problems Encounters Date Type Department Care Team Description 12/05/2024 10:30 AM CDT Office Visit [facility] Oncology and Hematology - [place] [address] [place] [address] Justin Marcial MD Leukocytosis, unspecified type (Primary Dx) from Last 3 Months Family History Medical History Relation Name Comments No Known Problems Brother No Known Problems Child Heart Disease Father Breast Cancer Mother Stroke Mother Relation Name Status Comments Brother Alive Child Alive Father Alive Mother Social History Tobacco Use Types Packs/Day Years [...] Mass Index 47.44 12/05/2024 10:33 AM CDT Plan of Treatment Upcoming Encounters Date Type Department Care Team (Late st Contact Info) Description 12/27/2024 4:30 PM CDT Telephone Check Up [facility] Oncology and Hematology - [place] [address] [address] [place] [address] Justin Marcial MD [address] [facility] [address] [place] [address] Health Maintenance Due Date Last Done Comments DTAP/TDAP/TD VACCINES (5 - Tdap) 06/21/1999 06/20/1999, 01/05/1990, 01/07/1989, Additional history exists HPV/Cotest (21-29) 07/15/2004 HPV VACCINES (1 - 3-dose SCD M series) 07/15/2010 CERVICAL CANCER SCREENING 07/15/2013 HPV/Cotest (30-65) 07/15/2013 PAP SMEAR 07/15/2013 BREAST CANCER SCREENING 2023 Preventative Visit- Commercial 04/13/2024 0 11/23/2017, 12/25/2015, 05/03/2014 INFLUENZA VACCINE (#1) 2024 12/13/2019 HEPATITIS B VACCINES Completed 08/13/2000, 04/30/2000, 02/26/2000 Insurance [place] [id number] [facility] Address: [facility] [id number] [place] [id number]
--- OUTSIDE RECORDS SUMMARY | 2024-12-05 11:58 | XMS_ITS | Encounter Summary ---
Author Organization [facility] Address [address] [place] [address] Care Team Providers Care Director Of Sports Medicine Name Role Phone Natalya Hall DO Primary Care Provider [phone] Encounter Details Date Type Department Care Team (Latest Contact Info) Description 02/16/2018 Abstract [facility] , Razia Vergara MD Social History Tobacco Use Types Packs/Day Years Used Date Smoking Tobacco: Never Assessed Comments Unknown Sex and Gender Information Value Date Recorded Sex Assigned at Not on file Legal Sex Female 8:11 PM CDT Gender Identity Not on file Sexual Orientation Not on file documented as of this encounter Plan of Treatment Not on file documented as of this encounter Visit Diagnoses Not on filedocumented in this encounter Additional Health Concerns Infection Onset Date Last Indicated Resolved Time COVID-19 Rule Out 03/12/2020 03/12/2020 03/14/2020 5:31 AM WASHER MEAT documented as of this encounter Care Teams Director Of Sports Medicine Relationship Specialty Start Date End Date Natalya Hall DO PCP - General FAMILY PRACTICE 03/15/20 documented as of this encounter
--- OUTSIDE RECORDS SUMMARY | 2024-12-05 11:58 | XMS_ITS | Clinical Summary ---
Author Organization [facility] Address [address] [place] [address] Care Team Providers Care Assisted Living Director Name Role Phone Abraham La MD Unavailable [phone] Source Comments [facility]non-owned Affiliates and Associated Physician Practices is amultiple site organization consisting of ambulatory clinics and hospital sitesin [place], [place], [place] and [place]. This disclosure is being madepursuant to the Care Everywhere program and may not contain all information available regarding this patient. Last updated 18.[facility] Allergies No known active allergies Medications * Be aware that medications may not be up to date on this document. Alwaysverify current medications with the patient. levonorgestrel (MIRENA) 20 MCG/24HR IUD 1 Device by Intrauterine route as directed. 9 Active ferrous fumarate-vitami n C ER (JAKE-SEQUELS) 65-25 MG tablet Take 150 mg by mouth daily with breakfast 30 Tab 2 6 Active Active Problems Problem Noted Date Diagnosed Date S/p nephrectomy 11/23/2017 Overview (11/23/2017): Lt nephrectomy in 2014 BMI 40.0-44.9, adult 11/23/2017 History of kidney stones 11/23/2017 Abnormal weight gain 11/23/2017 Acute cystitis with hematuria 12/25/2015 Dizziness 12/25/2015 Annual physical exam 05/03/2014 Abnormal urinalysis 05/03/2014 Resolved Problems Problem Noted Date Diagnosed Date Resolved Date Cough 05/03/2014 08/23/2014 Family History Medical History Relation Name Comments Diabetes Maternal Grandmother Cancer Mother Breast cancer; DCIS Stroke Mother in 2012 mom Diabetes Paternal Grandmother Relation Name Status Comments Brother Alive Father Alive Maternal Grandfather Maternal Grandmother Alive Mother Alive Paternal Grandfather Paternal Grandmother Social History Tobacco Use Types Packs/Day Years Used Date Smoking Tobacco: Never Smokeless Tobacco: Never Alcohol Use Standard Drinks/Week Comments Yes 1 (1 standard drink = 0.6 oz pur e alcohol) social Comments No Sex and Gender Information Value Date Recorded Sex Assigned at Not on file 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 Gender Identity Not on file Sexual Orientation Not on file 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 Not on file Not on file Last Filed Vital Signs Vital Sign Reading Time Taken Comments Blood Pressure 110/82 11/23/2017 1:53 PM CDT Pulse 90 11/23/2017 1:53 PM CDT Temperature 36.7 C (98.1 F) 11/23/2017 1:53 PM CDT Respiratory Rate 18 11/23/2017 1:53 PM CDT Oxygen Saturation 97% 09/22/2016 5:31 PM CDT Inhaled Oxygen Concentration - - Weight 110.4 kg (243 lb 6.4 oz) 11/23/2017 1:53 PM CDT Height 162.6 cm (5' 4) 11/23/2017 1:53 PM CDT Body Mass Index 41.78 11/23/2017 1:53 PM CDT Plan of Treatment Health Maintenance Due Date Last Done Comments MAMMOGRAM 1985 HIV SCREENING 07/15/1998 HEPATITIS C SCREENING 07/11/2001 DTAP/TDAP/TD VACCINES (1 - Tdap) 07/15/2002 HEPATITIS B VACCINE (1 of 3 - 19+ 3-dose series) 07/15/2002 HPV VACCINE (1 - 3-dose SCDM series) 07/15/2010 LIPID TESTING 12/05/2022 12/05/2017, 12/27/2015 COVID-19 VACCINE ( - 2023-2 5 season) 2023 DEPRESSION SCREENING 04/13/2024 INFLUENZA VACCINE (#1) 2024 ZOSTER VACCINE (1 of 2) 07/15/2033 HIB VACCINE Aged Out No longer eligi ble based on patient's age to complete this topic MENINGOCOCCAL (Group B) VACCINE SHARED DECISION-MAKING Aged Out No longer eligible based on patient's age to complete this topic MENINGOCOCCAL GROUPS A/C/Y/W VACCINE Aged Out No longer eligible b ased on patient's age to complete this topic PNEUMOCOCCAL VACCINE Aged Out No long er eligible based on patient's age to complete this topic Goals Goal Patient Goal Type Associated Problems Recent Progress Patient-Stated? Author Exercise 3X per week (30 min per time) Exercise No Sara Borrego Complete Health Maintenance Screenings Lifestyle No Fallon Beyer RN Take recommended medication(s) Lifestyle No Fallon Beyer RN Medical Devices Implanted Type Area Breakdown Mill Operator Device Identifier Shelf Expiration Date Model / Serial / Lot Stent Uret 6fr 2.1fr 28cm 2 Pgtl Crv 2 Implanted:Qty: 1 on 02/20/2016 by Abraham La MD at [facility] [employer] 02/20/2016 [id number] / / Explanted Type Area Breakdown Mill Operator Device Identifier Shelf Expiration Date Model / Serial / Lot Stent Uret 5fr 2.1fr 28cm 2 Pgtl Crv 2 Implanted:Qty: 1 Explanted:Qty: 1 on 02/20/2016 at [facility] [employer] 09/23/2018 [id number] / / [id number] Procedures Procedure Name Priority Date/Time Associated Diagnosis Comments LIPID PROFILE W TCHOL/HDL Routine 12/05/2017 9:26 AM CDT Annual physical exam BMI 40.0-44.9, adult from Last 3 Months or Most Recently Relevant to Health Maintenance Results * (ABNORMAL) LIPID PROFILE W TCHOL/HDL (12/05/2017 9:26 AM CDT) Cholesterol 190 100 - 199 mg/dL [facility] INSURANCE BILL Triglycerides 164(H) 0 - 149 mg/dL [facility] INSURANCE BILL HDL Cholesterol 40 >39 mg/dL [facility] INSURANCE BILL VLDL Calculated 33 5 - 40 mg/dL [facility] INSURANCE BILL LDL Calculated 117(H) 0 - 99 mg/dL [facility] INSURANCE BILL Comment NOT NEEDED [facility] INSURANCE BILL Comment:Ancillary determined the test is not needed Cholesterol/HDL Ratio 4.8(H) 0.0 - 4.4 ratio [facility] INSURANCE BILL Comment: T. Chol/HDL Ratio Men Women 1/2 Avg.Risk 3.4 3.3 Avg.Risk 5.0 4.4 2X Avg.Risk 9.6 7.1 3X Avg.Risk 23.4 11.0 FASTING Blood BLOOD SPECIMEN / Unknown 12/05/2017 9:26 AM CDT 12/05/2017 Narrative Resulting Agency Comment [facility] [address] [facility] [id number] Merrick Scanlon DO LAB - CHEMISTRY ORDERABLES Final Result Performing Organization Address City/State/[facility] Co de Phone Number [facility] INSURANCE BILL [address] [place] [address] from Last 3 Months or Most Recently Relevant to Health Maintenance Insurance HEALTH Advance Directives Documents on File Type Date Recorded Patient Cadd Drafter Expl anation Adv Directive/Living Will/POA 01/13/2013 3:56 PM * Full Code (Latest Code Status on File) Date Activated Date Inactivated Comments 05/07/2016 6:14 PM 05/09/2016 12:02 PM * Full Code Date Activated Date Inactivated Comments 02/20/2016 5:29 PM 02/21/2016 12:34 PM Care Teams Assisted Living Director Relationship Specialty Start Date End Date Abraham La MD Urology 02/22/16
[2024-12-05 12:22] LABS: Alanine Aminotransferase 22 U/L (6-35); Albumin Level 4.2 g/dL (3.5-5.1); Alkaline Phosphatase 100 U/L (38-126); Anion Gap 9 mmol/L (4-12); Aspartate Amino Transferase 30 U/L (14-36); Bilirubin,Total 0.5 mg/dL (0.2-1.3); Blood Urea Nitrogen 10 mg/dL (7-17); CRP 1.1 mg/dL (<1.0); Calcium 9.4 mg/dL (8.4-10.2); Carbon Dioxide 26 mmol/L (22-30); Chloride 104 mmol/L (98-107); Estimated Glomerular Filt Rate > 60; Glucose 93 mg/dL (65-110); Potassium 4.1 mmol/L (3.4-5.0); Sodium 139 mmol/L (137-145); Total Protein 8.6 g/dL (6.3-8.2)
== END 2024-12-05 11:18 | disposition home or self-care (01) ==
LOC: ANHLAB 11:18
PROVIDERS: PCP Nurse Practitioner Family; Visit Provider Internal Medicine Hematology & Oncology
DX: D72.829 Elevated white blood cell count, unspecified (principal)
CPT/HCPCS: 36415; 80053; 85025; 85652; 86140; 88184

== ENCOUNTER 2025-01-24 07:31 | Outpatient (CLI) | payer OTHER, SELFPAY ==
--- OUTSIDE RECORDS SUMMARY | 2006-05-11 19:00 | XMS_ITS | Continuity of Care Document ---
Author Organization [facility] Address [address] [place] [address] Phone Care Team Providers Care Human Resources Intern Name Role Phone Sky Buitrago MD Unavailable Unavailable Results Test Name Date and Time Measure Units Reference Range Abnormal Flag Status Comments Panel Description: [facility] Results Facility 533 Unknown INDURATION 00:00:00 0 MM Unknown PPD 00:00:00 neg Unknown Advance Directives Directive Yes / No Effective Date File Name No Information Encounters Encounter Description Practice Location Reason(s) For Visit Diagnoses Date Provider Providers Copied on Encounter [facility], [address], [place], [place], [id number], [place] tel:[phone] [facility] SCREENING-PU LMONARY TBANEMIA NOSROUTINE MEDICAL EXAM Iftikhar Swanson. [address] , [address], [place], [place], [id number], [place]. tel:[phone] Family History Family Member Type Diagnosis Age At Onset No Information Payers Payer name Insurance type Covered alliance party ID Authoriza tion(s) No Information Social History Type Description Quantity Date Captured Comments Sex Female Smoking Status No Information Chief Complaint And Reason For Visit No Information Reason For Referral Reason For Referral No Information History Of Present Illness Encounter Date Complaint History Of Prese nt Illness No Information Functional Status Date Functional Assessmen t No Information Instructions Date Instruction Additional Infor mation No Information Assessments Type Assessment Date No Information Patient Care Teams Name Effective Dates (start - stop) Status Members No Information
--- OUTSIDE RECORDS SUMMARY | 2025-01-24 07:35 | XMS_ITS | Encounter Summary ---
Author Organization [facility] Address [address] [place] [address] Care Team Providers Care Surgical Sales Representative Name Role Phone Natalya Hall DO Primary Care Provider [phone] Encounter Details Date Type Department Care Team (Latest Contact Info) Description 02/16/2018 Abstract [facility] , Razia Vergara MD Social [...] Rule Out 03/12/2020 03/12/2020 03/14/2020 5:31 AM OFFICE ADMINISTRATOR documented as of this encounter Care Teams Surgical Sales Representative Relationship Specialty Start Date End Date Natalya Hall DO PCP - General FAMILY PRACTICE 03/15/20 documented as of this encounter
--- OUTSIDE RECORDS SUMMARY | 2025-01-24 07:35 | XMS_ITS | Clinical Summary ---
Author Organization [facility] Address [address] [place] [address] Care Team Providers Care Leather Production Machine Operator Name Role Phone Abraham La MD Unavailable Source Comments [facility],non-owned Affiliates and Associated Physician Practices is amultiple site organization consisting of ambulatory clinics and hospital sitesin [place], [place], [place] and [place]. This disclosure is being madepursuant to the Care Everywhere program and may not contain all information available regarding this patient. 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 Gender Identity Not on file Sexual Orientation [...] series) 07/15/2010 LIPID TESTING 12/05/2022 12/05/2017, 12/27/2015 DEPRESSION SCREENING 04/13/2024 COVID-19 VACCINE ( - 2023-2 5 season) 2024 INFLUENZA VACCINE (#1) 2024 ZOSTER VACCINE (1 [...] Beyer RN Medical Devices Implanted Type Area Manager Analysis Device Identifier Shelf Expiration Date Model / Serial / Lot Stent Uret 6fr 2.1fr 28cm 2 Pgtl Crv 2 Implanted:Qty: 1 on 02/20/2016 by Abraham La MD at [facility] [employer] 02/20/2016 [id number] / / Explanted Type Area Manager Analysis Device Identifier Shelf Expiration Date Model / Serial / Lot Stent Uret 5fr 2.1fr 28cm 2 Pgtl Crv 2 Implanted:Qty: 1 Explanted:Qty: 1 on 02/20/2016 at [facility] [employer] 09/23/2018 [id number] / / [id number] Procedures Procedure Name Priority Date/Time Associated Diagnosis [...] CDT 12/05/2017 Narrative Resulting Agency Comment [facility] [address] [facility] [id number] Merrick Scanlon DO LAB - CHEMISTRY ORDERABLES Final Result Performing Organization Address City/State/[facility] Co de Phone Number [facility] INSURANCE BILL [address] [place] [address] from Last 3 Months or Most Recently Relevant to Health Maintenance Insurance Advance Directives Documents on File Type Date Recorded Patient Flour Mixer Expl anation Adv Directive/Living Will/POA 01/13/2013 3:56 PM * Full Code (Latest Code Status on File) Date Activated Date Inactivated Comments 05/07/2016 6:14 PM 05/09/2016 12:02 PM * Full Code Date Activated Date Inactivated Comments 02/20/2016 5:29 PM 02/21/2016 12:34 PM Care Teams Leather Production Machine Operator Relationship Specialty Start Date End Date Abraham La MD Urology 02/22/16
--- OUTSIDE RECORDS SUMMARY | 2025-01-24 07:35 | XMS_ITS | Encounter Summary ---
Author Organization [facility] Address [address] [place] [address] Care Team Providers Care Ecosystem Ecology Professor Name Role Phone Isabel Natalya Primary Care Provider [phone] Encounter Details Date Type Department Care Team (Late st Contact Info) Description 03/07/[address] [facility] Pre-Admission Testing [address] [place], [place] [address] Leland Romero MD [address] [facility] [place] [place], [place] [address] Social History Tobacco Use Types Packs/Day Years [...] COVID-19? No / Unsure 03/07/2020 10:21 AM SURVEY RESEARCH TEACHER documented as of this encounter Plan of Treatment Not on file documented as of this encounter Results * PRE-SURGICAL/PRE-PROCEDURE CORONAVIRUS (COVID 19) (03/12/2020 9:12 AM SURVEY RESEARCH TEACHER) CORONAVIRUS SARS COV 2 PCR (RESP) NOT DETECTED NOT DETECTED 03/14/2020 5:31 AM SURVEY RESEARCH TEACHER [facility] Comment: A Not Detected (negative) test result [...] providers and patients using the following websites: https://www.[employer].BDNA/home/Covid-19/HCP/Quest[facility]/fact- sheet.html https://www.[employer].BDNA/home/Covid-19/Patients/ QuestIVD/fact-sheet.html This test has been authorized by the FDA under an Emergency Use Authorization (EUA) for use by authorized laboratories. Due to the current public health emergency, [facility] is receiving a high volume of samples [...] about COVID-19 can be found at the [facility] website: www.[employer].BDNA/Covid19. Test performed at [facility] [address] [address] Director: JOSE C BAUM DO,MPH FIRST TEST NO 03/12/2020 10:29 AM [facility] EMPLOYED IN HEALTHCARE NO 03/12/2020 10:29 AM [facility] SYMPTOMATIC DEFINED BY CDC NO 03/12/2020 10:29 AM [facility] DATE OF SYMPTOM ONSET UNKNOWN 03/12/2020 10:49 AM SURVEY RESEARCH TEACHER [facility] HOSPITALIZATION STATUS NO 03/12/2020 10:29 AM SURVEY RESEARCH TEACHER [facility] PATIENT IN ICU NO 03/12/2020 10:29 AM SURVEY RESEARCH TEACHER [facility] RESIDENT OF [facility] NO 03/12/2020 10:29 AM SURVEY RESEARCH TEACHER [facility] NOT 03/12/2020 10:29 AM SURVEY RESEARCH TEACHER [facility] PATIENT'S RACE WHITE OR 03/12/2020 10:29 AM SURVEY RESEARCH TEACHER [facility] ETHNICITY NONHISPANIC 03/12/2020 10:29 AM SURVEY RESEARCH TEACHER [facility] SOURCE (QST) NASOPHARYNGEAL SWAB 03/12/2020 10:29 AM SURVEY RESEARCH TEACHER [facility] NASOPHARYNGEAL SWAB / Unknown 03/12/2020 9:12 AM SURVEY RESEARCH TEACHER Leland Romero MD MICROBIOLOGY - GENER AL ORDERABLES Final Result Performing Organization Address City/State/[facility] Co de Phone Number [facility] [address] [place] [address], [place] [phone] [facility] [address] documented in this encounter Visit Diagnoses Diagnosis Pre-op exam- Primary Preoperative examination, unspecified documented in this encounter Additional Health Concerns Infection Onset Date Last Indicated Resolved Time COVID-19 Rule Out 03/12/2020 03/12/2020 03/14/2020 5:31 AM SURVEY RESEARCH TEACHER documented as of this encounter Care Teams Ecosystem Ecology Professor Relationship Specialty Start Date End Date Natalya Hall DO PCP - General FAMILY PRACTICE 03/15/20 documented as of this encounter
--- OUTSIDE RECORDS SUMMARY | 2025-01-24 07:35 | XMS_ITS | Clinical Summary ---
Author Organization [facility] Kaitlynn garner [address] Address [address] [place] [address] Care Team Providers Care Ball Holder Name Role Phone Unavailable Primary Care Provider Unavailabl e Allergies No known active allergies Medications rosuvastatin (CRESTOR) 10 mg tablet Take 10 mg by mouth daily. Active losartan (COZAAR) 25 mg tablet Take 25 mg by mouth daily. Active Active Problems No known active problems Encounters Date Type Department Care Team Description 12/27/2024 4:30 PM CDT Telephone Check Up [facility] Oncology and Hematology [facility] [address] [place] [address] Justin Marcial MD Leukocytosis, unspecified type (Primary Dx) 12/14/2024 Orders Only [facility] Oncology and Hematology [facility] [address] [place] [address] Justin Marcial MD 12/07/2024 External Device Data [facility] ABSTRACTION Provider, Abstract 12/06/2024 External Device Data [facility] ABSTRACTION Provider, Abstract 12/06/2024 External Device Data [facility] ABSTRACTION Provider, Abstract 12/06/2024 Orders Only [facility] Oncology and Hematology [address] [place] [address] Justin Marcial MD 12/05/2024 10:30 AM CDT Office Visit [facility] Oncology and Hematology [facility] [address] [place] [address] Justin Marcial MD Leukocytosis, unspecified [...] Care Team (Late st Contact Info) Description 03/29/2025 11:15 AM RETAIL CONSULTANT Office Visit [facility] Oncology and Hematology - [place] [address] [facility] [address] [place] [address] Justin Marcial MD [address] [facility] [address] [place] [address] Health Maintenance Due Date Last Done Comments Pre-Diabetes and Diabetes Screening 1985 DTAP/TDAP/TD VACCINES (5 - Tdap) 06/21/1999 06/20/1999, 01/05/1990, 01/07/1989, Additional history exists HPV/Cotest (21-29) 07/15/2004 HPV VACCINES (1 - 3-dose SCD M series) 07/15/2010 CERVICAL CANCER SCREENING 07/15/2013 HPV/Cotest (30-65) 07/15/2013 PAP SMEAR 07/15/2013 BREAST CANCER SCREENING 2023 INFLUENZA VACCINE (#1) 2024 HEPATITIS B VACCINES Completed 08/13/2000, 04/30/2000, 02/26/2000 Procedures Procedure Name Priority Date/Time Associated Diagnosis Comments BCR/ABL DIAGNOSTIC ASSAY W/REFLEX Routine 12/05/2024 12:45 PM CDT COMPREHENSIVE METABOLIC PANEL Routine 12/05/2024 10:39 AM CDT FLOW CYTOMETRY REPORT Routine 12/05/2024 9:19 AM CDT from Last 3 Months Results * BCR/ABL DIAGNOSTIC ASSAY W/REFLEX (12/05/2024 12:45 PM CDT) us Justin Marcial MD BODY FLUIDS AND STOOLS COM Melinda l Result * COMPREHENSIVE METABOLIC PANEL (12/05/2024 10:39 AM CDT) Blood us Justin Marcial MD CHEMISTRY ORDERABLES Final Resu lt * FLOW CYTOMETRY REPORT (12/05/2024 9:19 AM CDT) us Justin Marcial MD PATHOLOGY/CYTOLOGY ORDERABLES F inal Result from Last 3 Months Insurance [employer] [facility] [place] [id number]
[2025-01-24 09:04] LABS: Cholesterol 175 mg/dL (0-200); HDL Direct 28 mg/dL; Triglycerides 167 mg/dL (<150)
== END 2025-01-24 07:32 | disposition home or self-care (01) ==
LOC: ANHLAB 07:33
PROVIDERS: PCP Nurse Practitioner Family; Visit Provider Nurse Practitioner Family
DX: E78.2 Mixed hyperlipidemia (principal)
CPT/HCPCS: 36415; 80061